=== PATIENT | female | born 1955 | race Caucasian/White ===

== ENCOUNTER 2016-11-07 14:22 | Outpatient (RCR) | payer MEDICARE, BC, OTHER ==
[~2016-11-07 14:22] MED LIST: /LOR25TA OR; /QUIN20TA; /QUIN20TA OR; /WARF25TA; /WARF5TA; ALBU17IN2; ALBUTEROL LIQ INH; ASPI325T; ASPI325T OR; BYST5TAB2 PO; CALCIUM WITH VIT D; CALCTAB22 OR; CALCTAB37 PO; CETI10TA; FERR325T OR; FLEXERIL; FOLI400T; FOLI400T OR; HYDROCHLOROQUINE PO; INSULIN SQ; LIPI20TA; LIPI20TA OR; LOTEMAX; MELA0.02 PO; METH2.5TA PO; MONT10TA2 PO; MULTIVIT PO; NEUR400C OR; NOVOINJ3 SC; OMEP20TA7 OR; PAXI40TA; PERC5TAB8; PERC7.5T8; PRIL20CA; QUIN20TA7 PO; SENO8.6T5 OR; SING10TA31; SING10TA31 OR; SUPPORT; SYMB80AE IN; SYMB80INH INH; THERGRAN; TOUJ1.2I SC; VICO5TAB; VITATAB22 PO; azmacort; b complex; humalog; restasis; vitamin d
== END 2016-11-08 ==
LOC: M CR 14:22
PROVIDERS: ATTEND Internal Medicine Cardiovascular Disease
DX: Z51.89 Encounter for other specified aftercare (principal); I25.10 Atherosclerotic heart disease of native coronary artery without angina pectoris

== ENCOUNTER → 2016-11-16 | Outpatient (CLI) | payer MEDICARE, BC, OTHER ==
[2016-11-16 14:51] LABS: ANION GAP 6 MEQ/L (8-16); BLOOD UREA NITROGEN 21 MG/DL (7-18); CALCIUM LEVEL 8.8 MG/DL (8.8-10.2); CARBON DIOXIDE LEVEL 32 MEQ/L (21-32); CHLORIDE LEVEL 103 MEQ/L (98-107); CREATININE FOR GFR 0.88 MG/DL (0.55-1.02); GLOMERULAR FILTRATION RATE > 60.0 (>45); GLUCOSE, FASTING 69 MG/DL (80-110); SODIUM LEVEL 141 MEQ/L (136-145)
== END ==
LOC: M WUC 11:52
PROVIDERS: ATTEND Surgery
DX: R91.1 Solitary pulmonary nodule (principal)

== ENCOUNTER → 2016-11-16 | Outpatient (CLI) | payer MEDICARE, BC, OTHER ==
[2016-11-16 14:54] LABS: MEAN CORPUSCULAR HGB CONC 32.1 g/dl (32.0-36.5); MEAN CORPUSCULAR VOLUME 99.6 fl (80.0-96.0); RED CELL DISTRIBUTION WIDTH 13.4 % (11.5-14.5); WHITE BLOOD COUNT 7.9 K/mm3 (4.0-10.0)
== END ==
LOC: M WUC 11:48
PROVIDERS: ATTEND Nurse Practitioner Family
DX: Z95.5 Presence of coronary angioplasty implant and graft (principal); R91.1 Solitary pulmonary nodule

== ENCOUNTER → 2016-11-24 | Outpatient (REF) | payer MEDICARE, OTHER ==
[2016-11-24 14:41] LABS: URIC ACID 3.5 MG/DL (2.6-6.0)
== END ==
LOC: M LAB REF 13:38
DX: M79.672 Pain in left foot (principal)

== ENCOUNTER 2016-12-02 13:46 | Outpatient (RCR) | payer MEDICARE, BC, OTHER | END 2016-12-06 | LOC: M CR 13:46 | PROVIDERS: ATTEND Internal Medicine Cardiovascular Disease | DX: Z95.5 Presence of coronary angioplasty implant and graft (principal) ==

== ENCOUNTER 2016-12-09 11:02 | Outpatient (RCR) | payer MEDICARE, BC, OTHER | END 2017-01-06 | LOC: M CR 11:02 | PROVIDERS: ATTEND Internal Medicine Cardiovascular Disease | DX: Z95.5 Presence of coronary angioplasty implant and graft (principal); I25.10 Atherosclerotic heart disease of native coronary artery without angina pectoris ==

== ENCOUNTER → 2016-12-12 | Outpatient (CLI) | payer MEDICARE, BC, OTHER ==
--- NOTE | 2016-12-12 11:14 | REP ---
TRIPLE PHASE BONE SCAN ANKLES AND FEET: Following the intravenous administration of 21.7 mCi of technetium 99m MDP, the patient's ankles and feet are imaged in the flow phase in the anterior and posterior projections. There is somewhat greater degree of perfusion of the right foot compared to the left. Immediate blood pool and 2.5 hour delayed images are performed of the ankles and feet in the anterior, posterior, and both lateral projections. There is somewhat greater degree of diffuse blood pooling of the right foot compared to the left. Delayed images show no abnormal focus of increased uptake in any portion of the left foot. There is a small focus of increased uptake at the posterior right calcaneus probably from spurring at that location. There is ill defined increased uptake in the tarsal/metatarsal region of the right foot, in the region of the dorsal aspect of the talonavicular joint an in the region of the tibiotalar joint most consistent with arthritic changes. IMPRESSION: No scintigraphic evidence of osteomyelitis. Probable mild arthritic changes in the right mid and hindfoot. Signed by Aung Bledsoe MD 12/12/2016 04:15 P
== END ==
LOC: M RAD 07:28
PROVIDERS: ATTEND Nurse Practitioner Family
DX: M79.675 Pain in left toe(s) (principal)
CPT/HCPCS: 78315; A9503

== ENCOUNTER → 2017-02-13 | Outpatient (CLI) | payer MEDICARE, BC, OTHER ==
[2017-02-13 14:04] LABS: MEAN CORPUSCULAR HEMOGLOBIN 33.1 pg (27.0-33.0); MEAN CORPUSCULAR VOLUME 103.4 fl (80.0-96.0); RED CELL DISTRIBUTION WIDTH 13.5 % (11.5-14.5); WHITE BLOOD COUNT 9.4 K/mm3 (4.0-10.0)
[2017-02-13 14:39] LABS: ALBUMIN 3.3 GM/DL (3.2-5.2); ALKALINE PHOSPHATASE 83 U/L (45-117); ALT/SGPT 36 U/L (12-78); ANION GAP 8 MEQ/L (8-16); AST/SGOT 21 U/L (15-37); BILIRUBIN,TOTAL 0.3 MG/DL (0.2-1.0); BLOOD UREA NITROGEN 16 MG/DL (7-18); CALCIUM LEVEL 8.7 MG/DL (8.8-10.2); CARBON DIOXIDE LEVEL 31 MEQ/L (21-32); CHLORIDE LEVEL 100 MEQ/L (98-107); CHOLESTEROL LEVEL 147 MG/DL (<200); CREATININE FOR GFR 0.76 MG/DL (0.55-1.02); GLOMERULAR FILTRATION RATE > 60.0 (>45); GLUCOSE, FASTING 188 MG/DL (80-110); POTASSIUM SERUM 4.2 MEQ/L (3.5-5.1); SODIUM LEVEL 139 MEQ/L (136-145); TOTAL PROTEIN 6.3 GM/DL (6.4-8.2); TRIGLYCERIDES LEVEL 60 MG/DL (<150)
== END ==
LOC: M WUC 10:19
PROVIDERS: ATTEND Nurse Practitioner Adult Health
DX: E78.5 Hyperlipidemia, unspecified (principal); I10 Essential (primary) hypertension; E10.59 Type 1 diabetes mellitus with other circulatory complications; E55.9 Vitamin D deficiency, unspecified

== ENCOUNTER → 2017-04-13 | Outpatient (CLI) | payer MEDICARE, BC ==
[~2017-04-13] MED LIST changes: +ASPI81TA85 PO; +ATOR80TA59 PO; -CALCTAB37 PO; +CALCTAB63 PO; +CALCTAB73 PO; +CLOP75TA2 PO; +ENAL20TA PO; +FISH100049 PO; +FOLI1TAB4 PO; +GABA-282 PO; +HYDR-3713 PO; +MAGN400C2 PO; -MELA0.02 PO; +MELA10TA PO; +MELA3TAB49 PO; +MULT1CHW39 PO; +PARO20TA3 PO; +PROAAER10 INH; +QUIN20TA17 PO; -QUIN20TA7 PO; +VITA100054 PO; +VITA400C PO; +VITACAP8 PO
--- NOTE | 2017-04-13 16:00 | REPMRS ---
Patient History The patient states she had a clinical breast exam in Patient is postmenopausal and had first child at age 34. Family history of colorectal cancer in paternal grandfather, unknown cancer in mother, and colorectal cancer in mother. Digital Woman Screen Mammo: April 13, 2017 - Exam #: [id number] Bilateral CC and MLO view(s) were taken. Technologist: Maggie Landers, Technologist Prior study comparison: February 26, 2016, digital woman screen mammo performed at [facility]. December 18, 2014, digital woman screen mammo performed at [facility]. December 06, 2013, digital woman screen mammo performed at [facility]. FINDINGS: There are scattered fibroglandular densities. There is a pacemaker power plant projecting over the left axilla on the MLO view.There has been no change in the appearance of the mammogram from the prior studies. There is a mild amount of scattered fibroglandular density which is fairly symmetric. There is no interval development of dominant mass, architectural distortion, or clustered microcalcification suggestive of malignancy. ASSESSMENT: BI-RADS/ACR category 1 mammogram. Negative. Recommendation Routine screening mammogram in 1 year (for women over age 40). This mammogram was interpreted with the aid of an FDA-approved computer-aided dectection system. Electronically Signed By: Nam Hoffman MD 04/13/17 [id number]
== END ==
LOC: M WHC 13:25
PROVIDERS: ATTEND Nurse Practitioner Family
DX: Z01.419 Encounter for gynecological examination (general) (routine) without abnormal findings (principal); Z12.31 Encounter for screening mammogram for malignant neoplasm of breast; Z78.0 Asymptomatic menopausal state; Z80.0 Family history of malignant neoplasm of digestive organs; Z95.0 Presence of cardiac pacemaker
CPT/HCPCS: G0101; G0202

== ENCOUNTER 2017-05-19 06:10 | Day surgery (SDC) | payer MEDICARE, BC, OTHER ==
[~2017-05-19] VITALS: Ht 172.7 cm; Wt 93.9 kg
[~2017-05-19 06:10] MED LIST changes: -VITA400C PO
[2017-05-19] MEDS ORDERED: LR 500 ML IV ONE (06:30)
[2017-05-19] MEDS ORDERED: VITA400C PO (06:45)
[2017-05-19] MEDS ORDERED: fentaNYL 100 MCG/2 ML INJECTION (J3010) As Ordered ONE (07:04)
[2017-05-19] MEDS ORDERED: MIDAZOLAM INJ 2 MG/2 ML VIAL (J2250) As Ordered ONE (07:04)
[2017-05-19] MEDS ORDERED: LIDOCAINE 1% SDV INJ 30 ML VIAL As Ordered ONE (07:21)
[2017-05-19] MEDS ORDERED: BACITRACIN PWD 50,000 UNITS VIAL As Ordered ONE (07:23)
[2017-05-19 09:14] VITALS: BP 178/98
--- NOTE | 2017-05-19 09:34 | RO ---
DATE OF PROCEDURE: 05/19/2017 PROCEDURE: 1. Explantation of depleted pacemaker pulse generator. 2. Testing of old atrial and ventricular pacing leads. 3. Implantation of new dual-chamber pulse generator. IMPLANTING REJECTED ITEMS CLERK: Dr. García Chao ANESTHESIOLOGIST: Dr. Olvera PREOPERATIVE DIAGNOSES: 1. Left pacemaker battery depletion. 2. Paroxysmal complete heart block. POSTOPERATIVE DIAGNOSES: 1. Left pacemaker battery depletion. 2. Paroxysmal complete heart block. TYPE OF ANESTHESIA: Monitored local anesthesia. CLINICAL SUMMARY: This 61-year-old, mother of one, disabled resident of [place], [place] is well-known to my cardiology practice with ischemic, hypertensive and valvular heart disease complicated by intermittent complete heart block with a dual-chamber pacemaker in situ. She has been followed on a regular basis in my office and was found to have pacemaker battery at the elective replacement indicator 2016. At this point, she actually has been doing very well, exercising on a regular basis at [employer] and has been free of chest discomfort, shortness of breath, palpitations, dizziness or claudication (following left lower extremity stenting December 2016). She is status post dual-chamber pacemaker implant (Medtronic SEDRO1) 04/09/2007 with CABG times three March 2014 complicated by sternal wound infection requiring debridement and deep bone biopsy. August 2016 cardiac catheterization showed normal left ventricular size and wall motion, 70% proximal LAD, 90% IM, occluded circumflex 90% proximal RCA with patent JORGENSEN to the LAD, CLAUDE to the RCA and SVG to the OM branch. The IM branch was stented. This pleasant, obese, late middle-aged woman, lay comfortably flat. Heart rate 70 beats per minute and regular, blood pressure 136/56, respiratory rate 16 per minute, body mass index (BMI) 31.5. No pallor or cyanosis. Normal oral moisture. Trachea midline. Neck veins were 3 cm above the sternal angle. Slightly increased anteroposterior chest diameter with well-healed sternotomy incision and left subclavian pacemaker incision. Apical impulse not palpable. Good air entry over both lung bauman without adventitious sounds. Heart sounds somewhat distant but audible S4 gallop. Has a soft systolic murmur along the left sternal border radiating to the right base. Normal carotid upstrokes and volume. Soft, overweight abdomen. No dependent edema. Normal pulses. Blood work 02/13/2017 showed hemoglobin of 13.5, normal white blood cell count and platelet count. Chemistry confirmed electrolyte balance with potassium 4.2, BUN 16, creatinine 0.8, albumin 3.3, random glucose 188. Glycosylated hemoglobin 8.1. EKG 05/17/2017 showed sinus rhythm at 71 beats per minute (BPM) with atrial sensing and intermittent ventricular pacing with artifact occurring simultaneously with spontaneous AV conducted impulses. Left atrial conduction disturbance. Poor precordial R wave progression with persistent S waves in V5 and V6 suggestive of body habitus versus pulmonary disease. Could not rule out prior septal injury. ST-T wave abnormalities unchanged from August 2016. DESCRIPTION OF PROCEDURE: With the patient in the fasting state having received Ancef 2 grams IV premedication and having signed informed consent, the patient was taken to the operating theater. Numerous skin electrodes were applied to facilitate continuous electrocardiographic monitoring. The left subclavian site of her old pacemaker was then prepped and draped in usual fashion. The skin was infiltrated with 1% Xylocaine and a 5 cm linear incision was made over the same scar. Careful dissection was then performed down to the level of her depleted pacemaker battery, which was then explanted (Medtronic - model #SENSA01, serial #[id number], implanted 04/09/2007). The individual pacing leads were then disconnected from the depleted pacemaker and tested. The right ventricular lead (Medtronic model #4076, serial #[id number]) measurements were: Stimulation threshold 0.7V/0.4 ms/impedance 532 ohms. The capital R wave amplitude measured 15.6 mV. The atrial lead (Medtronic model #4076, serial number #[id number]) measurements were: Stimulation threshold 2.0 volts/0.4 ms/impedance 353 ohms. The P wave amplitude measured 1.2 mV. These leads were then connected to a new dual-chamber pulse generator ([employer] - NodePing, model #[id number], serial #[id number]) and appropriate DDD pacing was documented. The generator was placed in the pocket after the pocket had been thoroughly irrigated with bacitracin solution. The device was secured in position with a suture through the upper right-hand corner of the epoxy header . The subcutaneous tissues were approximated using a running chromic suture and the skin was closed using kalpesh. A dry dressing was applied, and the patient was returned to the recovery room in good condition. No apparent complications. Estimated blood loss less than 10 mL. We will be monitoring her briefly in the advanced recovery room, but will be letting her go home once she is alert able to ambulate. Her diet will remain no added salt, low-fat, low-cholesterol, low carbohydrate. We have requested that she perform only light activities of daily living with her left arm and avoid getting her incision wet until her kalpesh are removed in my office 05/30/2017 at 9:15 a.m. Her medications will continue: Bystolic 5 mg daily, Accupril 20 mg twice a day, clopidogrel 75 mg daily, atorvastatin 80 mg daily, aspirin 81 mg daily, Dulera 100-5 one inhalation as directed, Singulair 10 mg daily, methotrexate 2.5 mg four tablets by mouth weekly on Sundays, gabapentin 300 mg tablets three daily, NovoLog FlexPen 100 units/mL sliding scale three times a day, Toujeo SoloStar 300 units/mL 40 units nightly or as directed, Paxil 20 mg daily, hydrocodone/acetaminophen 5-325 mg one tablet every 6 hours as needed, multivitamin one tablet daily, calcium 600 plus D two tablets daily, vitamin B complex one tablet daily, vitamin D3 ultra potency 50,000 units weekly, vitamin C 1 gram daily, magnesium 250 mg daily, folic acid 1 mg daily, fish oil 1 gram daily, and melatonin ER 3 mg nightly as needed. She has been encouraged contact us promptly for any abnormal erythema, swelling or discharge.
== END 2017-05-19 09:44 | disposition home or self-care (01) ==
LOC: M SDC 06:10
PROVIDERS: ATTEND Internal Medicine Cardiovascular Disease
DX: T82.111A Breakdown (mechanical) of cardiac pulse generator (battery), initial encounter (principal); I44.2 Atrioventricular block, complete; E66.8 Other obesity; I25.10 Atherosclerotic heart disease of native coronary artery without angina pectoris; I11.9 Hypertensive heart disease without heart failure; R94.31 Abnormal electrocardiogram [ECG] [EKG]; I35.1 Nonrheumatic aortic (valve) insufficiency; E78.2 Mixed hyperlipidemia; I34.0 Nonrheumatic mitral (valve) insufficiency; F17.200 Nicotine dependence, unspecified, uncomplicated; R07.9 Chest pain, unspecified; I25.2 Old myocardial infarction; E10.40 Type 1 diabetes mellitus with diabetic neuropathy, unspecified; M06.9 Rheumatoid arthritis, unspecified; M54.9 Dorsalgia, unspecified; F41.9 Anxiety disorder, unspecified; J44.9 Chronic obstructive pulmonary disease, unspecified; R06.83 Snoring; D64.9 Anemia, unspecified; R29.898 Other symptoms and signs involving the musculoskeletal system; Z91.09 Other allergy status, other than to drugs and biological substances; Z79.899 Other long term (current) drug therapy; Z79.82 Long term (current) use of aspirin; Z79.4 Long term (current) use of insulin; Z95.5 Presence of coronary angioplasty implant and graft; Z96.1 Presence of intraocular lens; Z96.643 Presence of artificial hip joint, bilateral; Y82.8 Other medical devices associated with adverse incidents
CPT/HCPCS: 33228; C1785; J0690; J2250; J3010

== ENCOUNTER → 2017-07-03 | Outpatient (CLI) | payer MEDICARE, BC, OTHER ==
[~2017-07-03] MED LIST changes: +VITA400C PO
[2017-07-03 15:10] LABS: ALBUMIN 3.2 GM/DL (3.2-5.2); ALBUMIN/GLOBULIN RATIO 1.07 (1.00-1.93); ALKALINE PHOSPHATASE 69 U/L (45-117); ALT/SGPT 38 U/L (12-78); ANION GAP 8 MEQ/L (8-16); AST/SGOT 29 U/L (15-37); BILIRUBIN,TOTAL 0.3 MG/DL (0.2-1.0); BLOOD UREA NITROGEN 15 MG/DL (7-18); CALCIUM LEVEL 8.4 MG/DL (8.8-10.2); CARBON DIOXIDE LEVEL 27 MEQ/L (21-32); CHLORIDE LEVEL 104 MEQ/L (98-107); CHOLESTEROL LEVEL 146 MG/DL (<200); CREATININE FOR GFR 0.75 MG/DL (0.55-1.02); GLOMERULAR FILTRATION RATE > 60.0 (>45); GLUCOSE, FASTING 90 MG/DL (80-110); POTASSIUM SERUM 3.9 MEQ/L (3.5-5.1); SODIUM LEVEL 139 MEQ/L (136-145); TOTAL PROTEIN 6.2 GM/DL (6.4-8.2); TRIGLYCERIDES LEVEL 45 MG/DL (<150)
== END ==
LOC: M WUC 09:45
PROVIDERS: ATTEND Nurse Practitioner Adult Health
DX: E78.2 Mixed hyperlipidemia (principal); I10 Essential (primary) hypertension; E10.59 Type 1 diabetes mellitus with other circulatory complications

== ENCOUNTER → 2017-07-18 | Outpatient (REF) | payer MEDICARE, OTHER | LOC: M SFHCPLAZ 16:34 | PROVIDERS: ATTEND Nurse Practitioner Adult Health | DX: E10.59 Type 1 diabetes mellitus with other circulatory complications (principal) ==

== ENCOUNTER → 2017-08-23 | Outpatient (REF) | payer MEDICARE, OTHER | LOC: M SFHCLERA 09:34 | PROVIDERS: ATTEND Dermatology | DX: D22.9 Melanocytic nevi, unspecified (principal) | CPT/HCPCS: 11100; 88305; G0463 ==

== ENCOUNTER → 2017-11-22 | Outpatient (CLI) | payer MEDICARE, OTHER ==
[2017-11-22 14:21] LABS: ESTIMATED AVERAGE GLUCOSE 180 MG/DL (60-110); HEMOGLOBIN A1c 7.9 %
[2017-11-22 14:27] LABS: TOTAL 25(OH) VITAMIN D 58.9 NG/ML (30.0-100.0)
[2017-11-22 14:31] LABS: ALBUMIN 3.7 GM/DL (3.2-5.2); ALBUMIN/GLOBULIN RATIO 1.32 (1.00-1.93); ALKALINE PHOSPHATASE 73 U/L (45-117); ALT/SGPT 32 U/L (12-78); ANION GAP 6 MEQ/L (8-16); AST/SGOT 25 U/L (7-37); BILIRUBIN,TOTAL 0.4 MG/DL (0.2-1.0); BLOOD UREA NITROGEN 17 MG/DL (7-18); CALCIUM LEVEL 9.1 MG/DL (8.8-10.2); CARBON DIOXIDE LEVEL 30 MEQ/L (21-32); CHLORIDE LEVEL 104 MEQ/L (98-107); CHOLESTEROL LEVEL 155 MG/DL (<200); CREATININE FOR GFR 0.83 MG/DL (0.55-1.30); GLOMERULAR FILTRATION RATE > 60.0 (>45); GLUCOSE, FASTING 91 MG/DL (70-100); HDL CHOLESTEROL 100 MG/DL (>40); LDL CHOLESTEROL 43.8 MG/DL (<100); NON-HDL-C 55 MG/DL; POTASSIUM SERUM 4.5 MEQ/L (3.5-5.1); SODIUM LEVEL 140 MEQ/L (136-145); TOTAL PROTEIN 6.5 GM/DL (6.4-8.2); TRIGLYCERIDES LEVEL 56 MG/DL (<150)
== END ==
LOC: M WUC 08:50
DX: E10.59 Type 1 diabetes mellitus with other circulatory complications (principal); E55.9 Vitamin D deficiency, unspecified; E78.2 Mixed hyperlipidemia

== ENCOUNTER → 2017-11-22 | Outpatient (CLI) | payer MEDICARE, OTHER ==
[2017-11-22 13:58] LABS: BASO % 0.4 % (0.0-1.0); EOS # 0.1 10^3/uL (0.0-0.50); EOS % 1.2 % (0.0-3.0); HEMATOCRIT 41.7 % (36.0-47.0); HEMOGLOBIN 13.8 g/dl (12.0-16.0); IMMATURE GRANULOCYTE % 0.1 % (0-3.0); LYMPH # 1.3 10^3/uL (1.5-4.5); LYMPH % 16.2 % (24.0-44.0); MEAN CORPUSCULAR HGB CONC 33.1 g/dl (32.0-36.5); MEAN CORPUSCULAR VOLUME 99.8 fl (80.0-96.0); MONO # 0.7 10^3/uL (0.0-0.8); NEUTROPHILS # 5.7 10^3/uL (1.8-7.7); NEUTROPHILS % 73.1 % (36.0-66.0); PLATELET COUNT, AUTOMATED 269 10^3/uL (150-450); RED BLOOD COUNT 4.18 10^6/uL (4.00-5.40); RED CELL DISTRIBUTION WIDTH 13.9 % (11.5-14.5); WHITE BLOOD COUNT 7.8 10^3/uL (4.0-10.0)
[2017-11-22 14:14] LABS: ALBUMIN 3.6 GM/DL (3.2-5.2); ALT/SGPT 31 U/L (12-78); AST/SGOT 25 U/L (7-37); BLOOD UREA NITROGEN 17 MG/DL (7-18); C REACTIVE PROTEIN QUANTITATIV < 0.30 MG/DL (0.00-0.30); CREATININE FOR GFR 0.84 MG/DL (0.55-1.30); GLOMERULAR FILTRATION RATE > 60.0 (>45)
[2017-11-22 14:32] LABS: ERYTHROCYTE SEDIMENTATION RATE 18 mm/hr (0-30)
[2017-11-22 14:58] LABS: HEPATITIS C VIRUS ABY INDEX < 0.0 INDEX (<0.8)
[2017-11-24 08:26] LABS: HEPATITIS BE ANTIGEN Negative (Negative)
== END ==
LOC: M WUC 08:54
DX: Z51.81 Encounter for therapeutic drug level monitoring (principal); Z79.899 Other long term (current) drug therapy; E10.59 Type 1 diabetes mellitus with other circulatory complications; E55.9 Vitamin D deficiency, unspecified; E78.2 Mixed hyperlipidemia
CPT/HCPCS: 80053

== ENCOUNTER → 2018-04-18 | Outpatient (CLI) | payer MEDICARE, BC | LOC: M WHC 10:04 | DX: Z12.31 Encounter for screening mammogram for malignant neoplasm of breast (principal); Z78.0 Asymptomatic menopausal state | CPT/HCPCS: 77067 ==

== ENCOUNTER → 2018-05-10 | Outpatient (CLI) | payer MEDICARE, BC, OTHER ==
[2018-05-10 14:54] LABS: BASO % 0.3 % (0.0-1.0); EOS # 0.1 10^3/uL (0.0-0.50); HEMATOCRIT 39.7 % (36.0-47.0); IMMATURE GRANULOCYTE % 0.3 % (0-3.0); LYMPH # 1.8 10^3/uL (1.5-4.5); MEAN CORPUSCULAR HEMOGLOBIN 32.7 pg (27.0-33.0); MEAN CORPUSCULAR HGB CONC 32.7 g/dl (32.0-36.5); MEAN CORPUSCULAR VOLUME 99.7 fl (80.0-96.0); MONO # 0.6 10^3/uL (0.0-0.8); MONO % 8.7 % (0.0-5.0); NEUTROPHILS # 4.6 10^3/uL (1.8-7.7); NEUTROPHILS % 64.7 % (36.0-66.0); PLATELET COUNT, AUTOMATED 276 10^3/uL (150-450); RED BLOOD COUNT 3.98 10^6/uL (4.00-5.40); RED CELL DISTRIBUTION WIDTH 15.5 % (11.5-14.5); WHITE BLOOD COUNT 7.2 10^3/uL (4.0-10.0)
[2018-05-10 14:58] LABS: ANION GAP 7 MEQ/L (8-16); BLOOD UREA NITROGEN 19 MG/DL (7-18); CALCIUM LEVEL 8.6 MG/DL (8.8-10.2); CARBON DIOXIDE LEVEL 31 MEQ/L (21-32); CHLORIDE LEVEL 102 MEQ/L (98-107); GLOMERULAR FILTRATION RATE > 60.0 (>45); GLUCOSE, FASTING 260 MG/DL (70-100); POTASSIUM SERUM 4.9 MEQ/L (3.5-5.1); SODIUM LEVEL 140 MEQ/L (136-145)
[2018-05-10 15:07] LABS: PARTIAL THROMBOPLASTIN TIME 25.9 SECONDS (25.4-37.6)
[2018-05-10 15:14] LABS: INR 0.98; PROTHROMBIN TIME 13.1 SECONDS (12.1-14.4)
== END ==
LOC: M WUC 11:33
DX: Z01.818 Encounter for other preprocedural examination (principal); I70.212 Atherosclerosis of native arteries of extremities with intermittent claudication, left leg; D69.8 Other specified hemorrhagic conditions
CPT/HCPCS: 80048

== ENCOUNTER → 2018-05-13 | Outpatient (CLI) | payer MEDICARE, BC, OTHER | LOC: M WUC 14:13 | DX: M25.569 Pain in unspecified knee (principal) | CPT/HCPCS: 73564 ==

== ENCOUNTER → 2018-07-02 | Outpatient (CLI) | payer MEDICARE, BC, OTHER ==
[2018-07-02 18:58] LABS: MALB URINE SIEMENS 42.1 MG/L
[2018-07-02 19:03] LABS: MAU/CREAT RATIO 26.8 MCG/MG (0.0-30.0)
[2018-07-02 19:10] LABS: ALBUMIN 3.4 GM/DL (3.2-5.2); ALBUMIN/GLOBULIN RATIO 1.17 (1.00-1.93); ALKALINE PHOSPHATASE 65 U/L (45-117); ALT/SGPT 39 U/L (12-78); ANION GAP 7 MEQ/L (8-16); AST/SGOT 25 U/L (7-37); BILIRUBIN,TOTAL 0.5 MG/DL (0.2-1.0); BLOOD UREA NITROGEN 14 MG/DL (7-18); CALCIUM LEVEL 8.5 MG/DL (8.8-10.2); CARBON DIOXIDE LEVEL 31 MEQ/L (21-32); CHLORIDE LEVEL 104 MEQ/L (98-107); CHOLESTEROL LEVEL 158 MG/DL (<200); CHOLESTEROL RISK RATIO 1.504 (<5); CREATININE FOR GFR 0.66 MG/DL (0.55-1.30); GLOMERULAR FILTRATION RATE > 60.0 (>45); GLUCOSE, FASTING 102 MG/DL (70-100); HDL CHOLESTEROL 105 MG/DL (>40); LDL CHOLESTEROL 44 MG/DL (<100); NON-HDL-C 53 MG/DL; POTASSIUM SERUM 4.9 MEQ/L (3.5-5.1); SODIUM LEVEL 142 MEQ/L (136-145); TOTAL PROTEIN 6.3 GM/DL (6.4-8.2); TRIGLYCERIDES LEVEL 44 MG/DL (<150)
[2018-07-02 20:08] LABS: TOTAL 25(OH) VITAMIN D 45.5 NG/ML (30.0-100.0)
[2018-07-02 20:27] LABS: ESTIMATED AVERAGE GLUCOSE 174 MG/DL (60-110); HEMOGLOBIN A1c 7.7 %
== END ==
LOC: M WUC 10:32
DX: E78.2 Mixed hyperlipidemia (principal); E10.59 Type 1 diabetes mellitus with other circulatory complications; E55.9 Vitamin D deficiency, unspecified
CPT/HCPCS: 84443

== ENCOUNTER → 2018-10-17 | Outpatient (CLI) | payer MEDICARE, BC, OTHER ==
[~2018-10-17] MED LIST changes: +FOLI1TAB11 PO; -FOLI1TAB4 PO; -GABA-282 PO; +GABA-843 PO; +METH2.5T48 PO; -METH2.5TA PO; +QUIN1TAB3 PO; -QUIN20TA17 PO
[2018-10-17 13:23] LABS: BASO % 0.2 % (0.0-1.0); EOS % 0.2 % (0.0-3.0); HEMATOCRIT 38.1 % (36.0-47.0); HEMOGLOBIN 12.6 g/dl (12.0-15.5); LYMPH # 1.4 10^3/uL (1.5-4.5); LYMPH % 11.5 % (24.0-44.0); MEAN CORPUSCULAR HEMOGLOBIN 32.9 pg (27.0-33.0); MEAN CORPUSCULAR HGB CONC 33.1 g/dl (32.0-36.5); MEAN CORPUSCULAR VOLUME 99.5 fl (80.0-96.0); MONO # 1.5 10^3/uL (0.0-0.8); MONO % 12.2 % (0.0-5.0); NEUTROPHILS # 9.2 10^3/uL (1.8-7.7); NEUTROPHILS % 75.5 % (36.0-66.0); PLATELET COUNT, AUTOMATED 273 10^3/uL (150-450); RED BLOOD COUNT 3.83 10^6/uL (4.00-5.40); WHITE BLOOD COUNT 12.2 10^3/uL (4.0-10.0)
[2018-10-17 13:46] LABS: ALT/SGPT 33 U/L (12-78); GLOMERULAR FILTRATION RATE > 60.0 (>45)
[2018-10-17 13:54] LABS: ERYTHROCYTE SEDIMENTATION RATE 59 mm/hr (0-30)
== END ==
LOC: M WUC 09:43
PROVIDERS: ATTEND Internal Medicine Rheumatology
DX: M05.79 Rheumatoid arthritis with rheumatoid factor of multiple sites without organ or systems involvement (principal); Z79.899 Other long term (current) drug therapy

== ENCOUNTER → 2018-10-17 | Outpatient (CLI) | payer MEDICARE, BC, OTHER ==
[2018-10-17 13:49] LABS: ALBUMIN 3.3 GM/DL (3.2-5.2); ALT/SGPT 32 U/L (12-78); BILIRUBIN,TOTAL 0.6 MG/DL (0.2-1.0); BLOOD UREA NITROGEN 16 MG/DL (7-18); CALCIUM LEVEL 8.9 MG/DL (8.8-10.2); CARBON DIOXIDE LEVEL 28 MEQ/L (21-32); CHLORIDE LEVEL 100 MEQ/L (98-107); CHOLESTEROL LEVEL 156 MG/DL (<200); CHOLESTEROL RISK RATIO 1.457 (<5); CREATININE FOR GFR 0.68 MG/DL (0.55-1.30); GLOMERULAR FILTRATION RATE > 60.0 (>45); GLUCOSE, FASTING 82 MG/DL (70-100); HDL CHOLESTEROL 107 MG/DL (>40); LDL CHOLESTEROL 36 MG/DL (<100); NON-HDL-C 49 MG/DL; POTASSIUM SERUM 4.9 MEQ/L (3.5-5.1); SODIUM LEVEL 135 MEQ/L (136-145); TOTAL PROTEIN 6.1 GM/DL (6.4-8.2); TRIGLYCERIDES LEVEL 66 MG/DL (<150)
[2018-10-17 14:13] LABS: TOTAL 25(OH) VITAMIN D 51.9 NG/ML (30.0-100.0)
[2018-10-17 14:25] LABS: HEMOGLOBIN A1c 9.2 %
== END ==
LOC: M WUC 09:39
PROVIDERS: ATTEND Nurse Practitioner Adult Health
DX: E10.59 Type 1 diabetes mellitus with other circulatory complications (principal); E55.9 Vitamin D deficiency, unspecified; E78.2 Mixed hyperlipidemia; M05.79 Rheumatoid arthritis with rheumatoid factor of multiple sites without organ or systems involvement; Z79.899 Other long term (current) drug therapy

== ENCOUNTER → 2018-10-22 | Outpatient (CLI) | payer MEDICARE, BC, OTHER ==
--- NOTE | 2018-10-22 16:50 | REP ---
Chest two views HISTORY: Flu symptoms Comparison: 08/11/2015 The lungs are clear. The heart is normal in size. The pulmonary vasculature is normal in appearance. The bony structure is intact. A cardiac pacemaker is present. IMPRESSION: No acute disease. Electronically Signed by Martin Milligan MD 10/22/2018 04:42 P
== END ==
LOC: M WUC 15:46
PROVIDERS: ATTEND Nurse Practitioner Adult Health
DX: R68.89 Other general symptoms and signs (principal); Z95.0 Presence of cardiac pacemaker
CPT/HCPCS: 71046; 87804; G0463

== ENCOUNTER → 2019-02-01 | Outpatient (CLI) | payer MEDICARE, BC, OTHER ==
[~2019-02-01] MED LIST changes: -/QUIN20TA; -/QUIN20TA OR; -/WARF25TA; -/WARF5TA; +ACCU1TAB2; +ACCU1TAB2 OR; +COUM1TAB17; +COUM1TAB18; -MULT1CHW39 PO; +MULT200T7 PO
[2019-02-01 13:41] LABS: BASO % 0.3 % (0.0-1.0); EOS # 0.1 10^3/uL (0.0-0.50); EOS % 1.2 % (0.0-3.0); HEMATOCRIT 37.9 % (36.0-47.0); HEMOGLOBIN 12.4 g/dl (12.0-15.5); LYMPH # 1.3 10^3/uL (1.5-4.5); LYMPH % 19.4 % (24.0-44.0); MEAN CORPUSCULAR HGB CONC 32.7 g/dl (32.0-36.5); MEAN CORPUSCULAR VOLUME 100.8 fl (80.0-96.0); MONO # 0.6 10^3/uL (0.0-0.8); MONO % 9.2 % (0.0-5.0); NEUTROPHILS # 4.8 10^3/uL (1.8-7.7); NEUTROPHILS % 69.6 % (36.0-66.0); PLATELET COUNT, AUTOMATED 294 10^3/uL (150-450); RED BLOOD COUNT 3.76 10^6/uL (4.00-5.40); WHITE BLOOD COUNT 6.9 10^3/uL (4.0-10.0)
[2019-02-01 13:49] LABS: ALBUMIN 3.5 GM/DL (3.2-5.2); ALT/SGPT 29 U/L (12-78); C REACTIVE PROTEIN QUANTITATIV < 0.30 MG/DL (0.00-0.30); CREATININE FOR GFR 0.73 MG/DL (0.55-1.30); GLOMERULAR FILTRATION RATE > 60.0 (>45)
[2019-02-01 14:28] LABS: ERYTHROCYTE SEDIMENTATION RATE 28 mm/hr (0-30)
== END ==
LOC: M WUC 09:30
PROVIDERS: ATTEND Internal Medicine Rheumatology
DX: Z53.9 Procedure and treatment not carried out, unspecified reason (principal); M05.79 Rheumatoid arthritis with rheumatoid factor of multiple sites without organ or systems involvement; Z79.899 Other long term (current) drug therapy

== ENCOUNTER → 2019-02-01 | Outpatient (CLI) | payer MEDICARE, BC, OTHER ==
[2019-02-01 13:52] LABS: ALBUMIN 3.3 GM/DL (3.2-5.2); ALT/SGPT 30 U/L (12-78); BILIRUBIN,TOTAL 0.4 MG/DL (0.2-1.0); BLOOD UREA NITROGEN 17 MG/DL (7-18); CALCIUM LEVEL 8.8 MG/DL (8.8-10.2); CARBON DIOXIDE LEVEL 31 MEQ/L (21-32); CHLORIDE LEVEL 105 MEQ/L (98-107); CHOLESTEROL LEVEL 152 MG/DL (<200); CHOLESTEROL RISK RATIO 1.688 (<5); CREATININE FOR GFR 0.72 MG/DL (0.55-1.30); GLOMERULAR FILTRATION RATE > 60.0 (>45); GLUCOSE, FASTING 80 MG/DL (70-100); HDL CHOLESTEROL 90 MG/DL (>40); LDL CHOLESTEROL 49.4 MG/DL (<100); NON-HDL-C 62 MG/DL; POTASSIUM SERUM 4.6 MEQ/L (3.5-5.1); SODIUM LEVEL 141 MEQ/L (136-145); TOTAL PROTEIN 6.3 GM/DL (6.4-8.2); TRIGLYCERIDES LEVEL 63 MG/DL (<150)
[2019-02-01 13:59] LABS: HEMOGLOBIN A1c 8.6 %; TOTAL 25(OH) VITAMIN D 60.7 NG/ML (30.0-100.0)
[2019-02-01 14:26] LABS: MALB URINE SIEMENS 74.9 MG/L
== END ==
LOC: M WUC 09:33
PROVIDERS: ATTEND Nurse Practitioner Adult Health
DX: E10.59 Type 1 diabetes mellitus with other circulatory complications (principal); E78.2 Mixed hyperlipidemia; E55.9 Vitamin D deficiency, unspecified; M05.79 Rheumatoid arthritis with rheumatoid factor of multiple sites without organ or systems involvement; Z79.899 Other long term (current) drug therapy

== ENCOUNTER → 2019-02-04 | Outpatient (CLI) | payer MEDICARE, BC, OTHER ==
[2019-02-04 16:55] LABS: BASO % 0.3 % (0.0-1.0); EOS # 0.1 10^3/uL (0.0-0.50); EOS % 0.6 % (0.0-3.0); HEMATOCRIT 38.2 % (36.0-47.0); HEMOGLOBIN 12.5 g/dl (12.0-15.5); LYMPH # 1.7 10^3/uL (1.5-4.5); MEAN CORPUSCULAR HEMOGLOBIN 32.6 pg (27.0-33.0); MEAN CORPUSCULAR HGB CONC 32.7 g/dl (32.0-36.5); MEAN CORPUSCULAR VOLUME 99.5 fl (80.0-96.0); MONO # 0.8 10^3/uL (0.0-0.8); MONO % 9.1 % (0.0-5.0); NEUTROPHILS % 69.7 % (36.0-66.0); PLATELET COUNT, AUTOMATED 247 10^3/uL (150-450); RED BLOOD COUNT 3.84 10^6/uL (4.00-5.40); WHITE BLOOD COUNT 8.6 10^3/uL (4.0-10.0)
[2019-02-04 17:14] LABS: INR 1.01; PROTHROMBIN TIME 13.4 SECONDS (12.1-14.4)
[2019-02-04 17:15] LABS: PARTIAL THROMBOPLASTIN TIME 29.2 SECONDS (25.4-37.6)
== END ==
LOC: M WUC 14:03
PROVIDERS: ATTEND Orthopaedic Surgery
DX: Z01.818 Encounter for other preprocedural examination (principal)

== ENCOUNTER → 2019-03-25 | Outpatient (CLI) | payer MEDICARE, BC, OTHER | LOC: M WUC 17:18 | PROVIDERS: ATTEND Nurse Practitioner Adult Health | DX: Z87.891 Personal history of nicotine dependence (principal) | CPT/HCPCS: 36415; G0480 ==

== ENCOUNTER → 2019-05-27 | Outpatient (REF) | payer MEDICARE, OTHER | LOC: M SFHCPLAZ 19:52 | PROVIDERS: ATTEND Dermatology | DX: D22.9 Melanocytic nevi, unspecified (principal) ==

== ENCOUNTER → 2019-05-30 | Outpatient (CLI) | payer MEDICARE, OTHER ==
[2019-05-30 13:51] LABS: ALBUMIN 3.5 GM/DL (3.2-5.2); ALT/SGPT 46 U/L (12-78); BILIRUBIN,TOTAL 0.4 MG/DL (0.2-1.0); BLOOD UREA NITROGEN 19 MG/DL (7-18); CALCIUM LEVEL 8.9 MG/DL (8.8-10.2); CARBON DIOXIDE LEVEL 29 MEQ/L (21-32); CHLORIDE LEVEL 105 MEQ/L (98-107); CHOLESTEROL LEVEL 150 MG/DL (<200); CHOLESTEROL RISK RATIO 1.612 (<5); CREATININE FOR GFR 0.72 MG/DL (0.55-1.30); GLOMERULAR FILTRATION RATE > 60.0 (>45); GLUCOSE, FASTING 76 MG/DL (70-100); HDL CHOLESTEROL 93 MG/DL (>40); LDL CHOLESTEROL 46 MG/DL (<100); NON-HDL-C 57 MG/DL; POTASSIUM SERUM 4.6 MEQ/L (3.5-5.1); SODIUM LEVEL 139 MEQ/L (136-145); TOTAL 25(OH) VITAMIN D 72.6 NG/ML (30.0-100.0); TOTAL PROTEIN 6.1 GM/DL (6.4-8.2); TRIGLYCERIDES LEVEL 57 MG/DL (<150)
[2019-05-30 14:02] LABS: HEMOGLOBIN A1c 9.5 %
[2019-05-30 14:09] LABS: MALB URINE SIEMENS 23.3 MG/L; MAU/CREAT RATIO 21.3 MCG/MG (0.0-30.0)
== END ==
LOC: M WUC 10:01
PROVIDERS: ATTEND Nurse Practitioner Adult Health
DX: E10.59 Type 1 diabetes mellitus with other circulatory complications (principal); E78.2 Mixed hyperlipidemia; E55.9 Vitamin D deficiency, unspecified

== ENCOUNTER → 2019-07-16 | Outpatient (CLI) | payer MEDICARE, BC ==
--- NOTE | 2019-07-16 15:11 | REPMRS ---
Patient History The patient states she had a clinical breast exam in 07/2019. Patient is postmenopausal and had first child at age 34. Family history of colorectal cancer in mother, colorectal cancer in paternal grandfather. No Hormone Replacement Therapy 3D TOMOSYNTHESIS WAS PERFORMED. The [facility] lifetime risk for breast cancer is 9.3%. Digital Woman Screen Mammo: July 16, 2019 - Exam #: [id number] Bilateral CC and MLO view(s) were taken. Technologist: Reba Maguire, Technologist Prior study comparison: April 18, 2018, bilateral digital woman screen mammo performed at [facility]. April 13, 2017, digital woman screen mammo performed at [facility]. FINDINGS: There are scattered fibroglandular densities. There has been no change in the appearance of the mammogram from the prior studies. There is a mild amount of residual fibroglandular tissue which is fairly symmetric. There is no interval development of dominant mass, architectural distortion, or clustered microcalcification suggestive of malignancy. Assessment: BI-RADS/ACR category 1 mammogram. Negative Mammogram. Recommendation Routine screening mammogram in 1 year (for women over age 40). This mammogram was interpreted with the aid of an FDA-approved computer-aided dectection system. Electronically Signed By: Aung Bledsoe MD 07/16/19 [id number]
== END ==
LOC: M WHC 13:23
PROVIDERS: ATTEND Nurse Practitioner Family
DX: Z01.419 Encounter for gynecological examination (general) (routine) without abnormal findings (principal); Z12.31 Encounter for screening mammogram for malignant neoplasm of breast; Z78.0 Asymptomatic menopausal state; Z80.0 Family history of malignant neoplasm of digestive organs
CPT/HCPCS: 77063; 77067; G0101; G0123

== ENCOUNTER → 2019-07-16 | Outpatient (REF) | payer MEDICARE, OTHER | LOC: M SFHCWAGY 13:49 | PROVIDERS: ATTEND Nurse Practitioner Family | DX: Z12.4 Encounter for screening for malignant neoplasm of cervix (principal); N95.8 Other specified menopausal and perimenopausal disorders ==

== ENCOUNTER → 2019-08-22 | Outpatient (REF) | payer MEDICARE, OTHER ==
[2019-08-22 18:11] LABS: ALBUMIN 3.3 GM/DL (3.2-5.2); ALT/SGPT 33 U/L (12-78); BILIRUBIN,TOTAL 0.3 MG/DL (0.2-1.0); BLOOD UREA NITROGEN 16 MG/DL (7-18); CALCIUM LEVEL 8.6 MG/DL (8.8-10.2); CARBON DIOXIDE LEVEL 27 MEQ/L (21-32); CHLORIDE LEVEL 99 MEQ/L (98-107); GLOMERULAR FILTRATION RATE > 60.0 (>45); GLUCOSE, FASTING 366 MG/DL (70-100); POTASSIUM SERUM 4.9 MEQ/L (3.5-5.1); SODIUM LEVEL 132 MEQ/L (136-145); TOTAL PROTEIN 6.1 GM/DL (6.4-8.2)
[2019-08-22 18:30] LABS: HEMOGLOBIN A1c 8.5 %
== END ==
LOC: M SFHCPLAZ 13:46
PROVIDERS: ATTEND Nurse Practitioner Adult Health
DX: E10.59 Type 1 diabetes mellitus with other circulatory complications (principal)
CPT/HCPCS: 36415; 80053; 83036; 84443; G0463

== ENCOUNTER → 2019-10-25 | Outpatient (CLI) | payer MEDICARE, OTHER ==
[2019-10-25 17:11] LABS: BASO % 0.3 % (0.0-1.0); EOS # 0.1 10^3/uL (0.0-0.5); EOS % 1.2 % (0.0-3.0); HEMATOCRIT 42.3 % (36.0-47.0); HEMOGLOBIN 13.4 g/dl (12.0-15.5); LYMPH # 1.6 10^3/uL (1.5-5.0); MEAN CORPUSCULAR HEMOGLOBIN 31.6 pg (27.0-33.0); MEAN CORPUSCULAR HGB CONC 31.7 g/dl (32.0-36.5); MEAN CORPUSCULAR VOLUME 99.8 fl (80.0-96.0); MONO # 0.9 10^3/uL (0.0-0.8); MONO % 13.6 % (0.0-5.0); NEUTROPHILS # 3.9 10^3/uL (1.5-8.5); NEUTROPHILS % 59.6 % (36.0-66.0); PLATELET COUNT, AUTOMATED 258 10^3/uL (150-450); RED BLOOD COUNT 4.24 10^6/uL (4.00-5.40); WHITE BLOOD COUNT 6.6 10^3/uL (4.0-10.0)
[2019-10-25 17:27] LABS: ALBUMIN 3.6 GM/DL (3.2-5.2); ALT/SGPT 29 U/L (12-78); C REACTIVE PROTEIN QUANTITATIV 1.19 MG/DL (0.00-0.30); CREATININE FOR GFR 0.94 MG/DL (0.55-1.30); GLOMERULAR FILTRATION RATE > 60.0 (>45)
[2019-10-25 17:29] LABS: ERYTHROCYTE SEDIMENTATION RATE 13 mm/hr (0-30)
== END ==
LOC: M WUC 15:03
PROVIDERS: ATTEND Internal Medicine Rheumatology
DX: Z79.899 Other long term (current) drug therapy (principal)

== ENCOUNTER → 2019-12-18 | Outpatient (CLI) | payer MEDICARE, OTHER ==
[~2019-12-18] MED LIST changes: -MONT10TA2 PO; +MONT10TA4 PO
[2019-12-18 13:26] LABS: BLOOD UREA NITROGEN 17 MG/DL (7-18); CREATININE FOR GFR 0.75 MG/DL (0.55-1.30); GLUCOSE, FASTING 153 MG/DL (70-100)
[2019-12-18 13:27] LABS: CALCIUM LEVEL 9.4 MG/DL (8.8-10.2); CARBON DIOXIDE LEVEL 29 MEQ/L (21-32); CHLORIDE LEVEL 102 MEQ/L (98-107); GLOMERULAR FILTRATION RATE > 60.0 (>45); POTASSIUM SERUM 4.6 MEQ/L (3.5-5.1); SODIUM LEVEL 137 MEQ/L (136-145)
[2019-12-18 13:49] LABS: BASO % 0.2 % (0.0-1.0); EOS # 0.1 10^3/uL (0.0-0.5); EOS % 0.9 % (0.0-3.0); HEMATOCRIT 41.7 % (36.0-47.0); HEMOGLOBIN 13.3 g/dl (12.0-15.5); LYMPH # 1.6 10^3/uL (1.5-5.0); LYMPH % 18.4 % (24.0-44.0); MEAN CORPUSCULAR HGB CONC 31.9 g/dl (32.0-36.5); MEAN CORPUSCULAR VOLUME 100.5 fl (80.0-96.0); MONO # 0.9 10^3/uL (0.0-0.8); MONO % 10.7 % (0.0-5.0); NEUTROPHILS # 5.9 10^3/uL (1.5-8.5); NEUTROPHILS % 69.4 % (36.0-66.0); PLATELET COUNT, AUTOMATED 268 10^3/uL (150-450); RED BLOOD COUNT 4.15 10^6/uL (4.00-5.40); WHITE BLOOD COUNT 8.5 10^3/uL (4.0-10.0)
== END ==
LOC: M WUC 09:27
PROVIDERS: ATTEND Internal Medicine Cardiovascular Disease
DX: I25.10 Atherosclerotic heart disease of native coronary artery without angina pectoris (principal); R94.31 Abnormal electrocardiogram [ECG] [EKG]; Z95.1 Presence of aortocoronary bypass graft

== ENCOUNTER → 2020-02-14 | Outpatient (CLI) | payer MEDICARE, OTHER ==
[2020-02-14 17:06] LABS: ALBUMIN 3.5 GM/DL (3.2-5.2); ALT/SGPT 35 U/L (12-78); C REACTIVE PROTEIN QUANTITATIV < 0.30 MG/DL (0.00-0.30); CREATININE FOR GFR 0.71 MG/DL (0.55-1.30); GLOMERULAR FILTRATION RATE > 60.0 (>45)
[2020-02-14 17:15] LABS: BASO % 0.3 % (0.0-1.0); EOS % 0.6 % (0.0-3.0); HEMATOCRIT 37.8 % (36.0-47.0); HEMOGLOBIN 12.2 g/dl (12.0-15.5); LYMPH # 1.7 10^3/uL (1.5-5.0); LYMPH % 27.7 % (24.0-44.0); MEAN CORPUSCULAR HEMOGLOBIN 32.4 pg (27.0-33.0); MEAN CORPUSCULAR HGB CONC 32.3 g/dl (32.0-36.5); MEAN CORPUSCULAR VOLUME 100.5 fl (80.0-96.0); MONO # 0.6 10^3/uL (0.0-0.8); MONO % 10.1 % (0.0-5.0); NEUTROPHILS # 3.8 10^3/uL (1.5-8.5); PLATELET COUNT, AUTOMATED 245 10^3/uL (150-450); RED BLOOD COUNT 3.76 10^6/uL (4.00-5.40); WHITE BLOOD COUNT 6.2 10^3/uL (4.0-10.0)
[2020-02-14 18:03] LABS: ERYTHROCYTE SEDIMENTATION RATE 15 mm/hr (0-30)
== END ==
LOC: M WUC 13:39
PROVIDERS: ATTEND Internal Medicine Rheumatology
DX: M05.79 Rheumatoid arthritis with rheumatoid factor of multiple sites without organ or systems involvement (principal); Z79.899 Other long term (current) drug therapy

== ENCOUNTER → 2020-03-25 | Outpatient (REF) | payer MEDICARE, OTHER ==
[2020-03-25 16:13] LABS: CREATININE, URINE 15.8 MG/DL; MALB URINE SIEMENS 23.1 MG/L; MAU/CREAT RATIO 146.2 MCG/MG (0.0-30.0)
== END ==
LOC: M LAB REF 15:01
PROVIDERS: ATTEND Nurse Practitioner Family
DX: E10.65 Type 1 diabetes mellitus with hyperglycemia (principal)

== ENCOUNTER → 2020-05-13 | Outpatient (CLI) | payer MEDICARE, BC, OTHER ==
[~2020-05-13] MED LIST changes: -ASPI81TA85 PO; +ASPI81TA86 PO; -ENAL20TA PO; +ENAL20TA11 PO
== END ==
LOC: M LABSMTC 12:30
PROVIDERS: ATTEND Nurse Practitioner Family
DX: Z11.59 Encounter for screening for other viral diseases (principal); Z20.828 Contact with and (suspected) exposure to other viral communicable diseases
CPT/HCPCS: C9803; U0003

== ENCOUNTER → 2020-06-24 | Outpatient (CLI) | payer MEDICARE, BC, OTHER ==
[2020-06-24 11:46] LABS: BLOOD UREA NITROGEN 20 MG/DL (7-18); CALCIUM LEVEL 9.3 MG/DL (8.8-10.2); CARBON DIOXIDE LEVEL 29 MEQ/L (21-32); CHLORIDE LEVEL 102 MEQ/L (98-107); CHOLESTEROL LEVEL 191 MG/DL (<200); CHOLESTEROL RISK RATIO 1.785 (<5); CREATININE FOR GFR 0.79 MG/DL (0.55-1.30); GLOMERULAR FILTRATION RATE > 60.0 (>45); GLUCOSE, FASTING 151 MG/DL (70-100); HDL CHOLESTEROL 107 MG/DL (>40); LDL CHOLESTEROL 73 MG/DL (<100); NON-HDL-C 84 MG/DL; POTASSIUM SERUM 4.8 MEQ/L (3.5-5.1); SODIUM LEVEL 138 MEQ/L (136-145); TRIGLYCERIDES LEVEL 54 MG/DL (<150)
== END ==
LOC: M WUC 08:41
PROVIDERS: ATTEND Physician Assistant
DX: I25.10 Atherosclerotic heart disease of native coronary artery without angina pectoris (principal); I11.9 Hypertensive heart disease without heart failure

== ENCOUNTER → 2020-07-17 | Outpatient (CLI) | payer MEDICARE, OTHER ==
--- NOTE | 2020-07-17 14:50 | REPMRS ---
Patient History The patient states she had a clinical breast exam in 07/2020. Patient is postmenopausal, had previous chest radiation therapy at age 64, has history of right sided lung cancer at age 64, and had first child at age 34. Family history of colorectal cancer in mother, colorectal cancer in paternal grandfather. No Hormone Replacement Therapy 3D TOMOSYNTHESIS WAS PERFORMED. The [facility] lifetime risk for breast cancer is 8.9%. VOLPARA ZONIA C. Digital Woman Screen Mammo: July 17, 2020 - Exam #: [id number] Bilateral CC and MLO view(s) were taken. Technologist: Reba Maguire, Technologist Prior study comparison: July 16, 2019, bilateral digital woman screen mammo performed at [facility]. April 18, 2018, bilateral digital woman screen mammo performed at [facility]. FINDINGS: There are scattered fibroglandular densities. There has been no change in the appearance of the mammogram from the prior studies. There is a mild amount of residual fibroglandular tissue which is fairly symmetric. There is no interval development of dominant mass, architectural distortion, or clustered microcalcification suggestive of malignancy. Assessment: BI-RADS/ACR category 1 mammogram. Negative Mammogram. Recommendation Routine screening mammogram in 1 year (for women over age 40). This mammogram was interpreted with the aid of an FDA-approved computer-aided dectection system. Electronically Signed By: Aung Bledsoe MD 07/17/20 [id number]
== END ==
LOC: M WHC 13:25
PROVIDERS: ATTEND Nurse Practitioner Family
DX: Z01.419 Encounter for gynecological examination (general) (routine) without abnormal findings (principal); Z12.31 Encounter for screening mammogram for malignant neoplasm of breast; Z78.0 Asymptomatic menopausal state; Z85.118 Personal history of other malignant neoplasm of bronchus and lung; Z80.0 Family history of malignant neoplasm of digestive organs; Z92.3 Personal history of irradiation
CPT/HCPCS: 77063; 77067; G0101; G0123

== ENCOUNTER → 2020-07-17 | Outpatient (REF) | payer MEDICARE, OTHER | LOC: M SFHCWAGY 18:13 | PROVIDERS: ATTEND Nurse Practitioner Family | DX: Z12.4 Encounter for screening for malignant neoplasm of cervix (principal); N95.2 Postmenopausal atrophic vaginitis ==

== ENCOUNTER → 2020-10-15 | Outpatient (REF) | payer MEDICARE, OTHER ==
[~2020-10-15] MED LIST changes: -MONT10TA4 PO; +MONT5TAB2 PO
== END ==
LOC: M SFHCPLAZ 16:53
PROVIDERS: ATTEND Nurse Practitioner Adult Health
DX: Z20.822 Contact with and (suspected) exposure to COVID-19 (principal)

== ENCOUNTER → 2020-10-15 | Outpatient (REF) | payer MEDICARE, OTHER ==
[~2020-10-15] MED LIST changes: +GABA-282 PO; -GABA-843 PO; +MONT10TA10 PO; -MONT5TAB2 PO
[2020-10-15 18:00] LABS: ALBUMIN 3.8 GM/DL (3.2-5.2); ALT/SGPT 43 U/L (12-78); BILIRUBIN,TOTAL 0.3 MG/DL (0.2-1.0); BLOOD UREA NITROGEN 22 MG/DL (7-18); CALCIUM LEVEL 9.3 MG/DL (8.8-10.2); CARBON DIOXIDE LEVEL 30 MEQ/L (21-32); CHLORIDE LEVEL 102 MEQ/L (98-107); CHOLESTEROL LEVEL 187 MG/DL (<200); CHOLESTEROL RISK RATIO 1.571 (<5); CREATININE FOR GFR 0.82 MG/DL (0.55-1.30); GLOMERULAR FILTRATION RATE > 60.0 (>45); GLUCOSE, FASTING 287 MG/DL (70-100); HDL CHOLESTEROL 119 MG/DL (>40); LDL CHOLESTEROL 56 MG/DL (<100); NON-HDL-C 68 MG/DL; POTASSIUM SERUM 4.9 MEQ/L (3.5-5.1); SODIUM LEVEL 137 MEQ/L (136-145); TOTAL PROTEIN 6.5 GM/DL (6.4-8.2); TRIGLYCERIDES LEVEL 58 MG/DL (<150)
[2020-10-15 18:02] LABS: TOTAL 25(OH) VITAMIN D 60.8 NG/ML (30.0-100.0)
[2020-10-15 18:04] LABS: CREATININE, URINE 37.9 MG/DL; MALB URINE SIEMENS 26.1 MG/L; MAU/CREAT RATIO 68.8 MCG/MG (0.0-30.0)
[2020-10-15 19:49] LABS: HEMOGLOBIN A1c 7.9 %
== END ==
LOC: M SFHCPLAZ 14:01
PROVIDERS: ATTEND Nurse Practitioner Adult Health
DX: E10.59 Type 1 diabetes mellitus with other circulatory complications (principal); E55.9 Vitamin D deficiency, unspecified; E78.2 Mixed hyperlipidemia
CPT/HCPCS: 36415; 80053; 80061; 82043; 82306; 83036; 84443; G0463; U0003

== ENCOUNTER → 2021-01-11 | Outpatient (CLI) | payer MEDICARE, BC, OTHER ==
--- NOTE | 2021-01-11 14:13 | REP ---
INDICATION: MALIGNANT NEOPLASM RT LUNG. COMPARISON: Chest CT without IV contrast dated 10/12/2020. TECHNIQUE: Chest CT without IV contrast. FINDINGS: The known spiculated nodule posteriorly in the right upper lobe abutting the major fissure is again identified and has increased in size today measuring 2.4 cm, (previously 1.5 cm. The major fissure appears thickened, as previously. There are no new lung nodules or masses. There are no other enlarging lung nodules. Stable biapical pleuroparenchymal scarring is unchanged. There is no mediastinal lymph node enlargement. This is unchanged. There is no axillary lymphadenopathy. This is unchanged. In the absence of IV contrast the study is insensitive for hilar lymph node enlargement. Thoracic aorta is unremarkable except for calcified atheroma. Cardiac size is normal. There is a pacemaker. No pericardial effusion. Upper abdomen: There is no adrenal nodule or mass. The visualized areas of the unenhanced liver, pancreas and spleen are unremarkable. IMPRESSION: The known is a spiculated right upper lobe lung mass has increased in size. The mass is adjacent to the major fissure and there is thickening of the major fissure. This is unchanged. No other interval changes are identified. <Electronically signed by Aung Levy > 01/11/21 [id number]
== END ==
LOC: M RAD 13:08
PROVIDERS: ATTEND Radiology Radiation Oncology
DX: C34.31 Malignant neoplasm of lower lobe, right bronchus or lung (principal)

== ENCOUNTER → 2021-01-29 | Outpatient (REF) | payer MEDICARE, BC, OTHER | LOC: M SFHCPLAZ 13:28 | PROVIDERS: ATTEND Physician Assistant | DX: J02.9 Acute pharyngitis, unspecified (principal) | CPT/HCPCS: 87880; G0463 ==

== ENCOUNTER → 2021-05-05 | Outpatient (CLI) | payer MEDICARE, BC, OTHER ==
[~2021-05-05] MED LIST changes: +ALBU83IN INH; +ASPI81TA26 PO; +BACL10TA2 PO; +ERGO500029 PO; +GABA600T4 PO; +INSUH10VL SC; +QUIN20TA48 PO; +SING10TA32 PO; +XELJ11TA PO
== END ==
LOC: M LABSMTC 10:11
PROVIDERS: ATTEND Anesthesiology
DX: Z01.812 Encounter for preprocedural laboratory examination (principal); Z20.822 Contact with and (suspected) exposure to COVID-19

== ENCOUNTER → 2021-05-06 | Outpatient (REF) | payer MEDICARE, BC, OTHER ==
[2021-05-06 17:15] LABS: CREATININE, URINE 21.2 MG/DL; MALB URINE SIEMENS 37.3 MG/L; MAU/CREAT RATIO 175.9 MCG/MG (0.0-30.0)
== END ==
LOC: M LAB REF 15:48
PROVIDERS: ATTEND Internal Medicine Endocrinology, Diabetes & Metabolism
DX: E10.65 Type 1 diabetes mellitus with hyperglycemia (principal)
CPT/HCPCS: 82043; G0463

== ENCOUNTER 2021-05-10 12:53 | Day surgery (SDC) | payer MEDICARE, BC, OTHER ==
[~2021-05-10] VITALS: Ht 172.7 cm; Wt 76.7 kg
[~2021-05-10 12:53] MED LIST changes: +NS 1,000 ML IV ONE
[2021-05-10] MEDS ORDERED: LIDOCAINE 2% 100MG/5ML SDV (FOR ANES.) As Ordered ONE (13:36)
[2021-05-10] MEDS ORDERED: propofoL 200 MG/20 ML VIAL As Ordered ONE ×2 (13:54→14:42)
--- NOTE | 2021-05-10 14:55 | ROOR ---
Patient Name: Stephie Dunne Procedure Date: 05/10/2021 2:31 PM Date of : 1955 Age: 65 Room: [facility] Gender: Female Note Status: Finalized Procedure: Total Colonoscopy to Cecum Indications: Screening for colorectal malignant neoplasm Providers: Tim Alvarez MD Referring MD: Perla Meyer NP Requesting Provider: Medicines: Monitored Anesthesia Care Complications: No immediate complications. Procedure: Pre-Anesthesia Assessment: - The heart rate, respiratory rate, oxygen saturations, blood pressure, adequacy of pulmonary ventilation, and response to care were monitored throughout the procedure. The Colonoscope was introduced through the anus and advanced to the cecum, identified by appendiceal orifice and ileocecal valve. The colonoscopy was performed without difficulty. The patient tolerated the procedure well. The quality of the bowel preparation was excellent. Findings: The perianal and digital rectal examinations were normal. Non-bleeding internal hemorrhoids were found during retroflexion. The hemorrhoids were small and Grade I (internal hemorrhoids that do not prolapse). Scattered small-mouthed diverticula were found in the recto-sigmoid colon, sigmoid colon and descending colon. The exam was otherwise without abnormality on direct and retroflexion views. Impression: - Non-bleeding internal hemorrhoids. - Diverticulosis in the recto-sigmoid colon, in the sigmoid colon and in the descending colon. - The examination was otherwise normal on direct and retroflexion views. - No specimens collected. - The exam was otherwise normal to the cecum. Recommendation: - Patient has a contact number available for emergencies. The signs and symptoms of potential delayed complications were discussed with the patient. Return to normal activities tomorrow. Written discharge instructions were provided to the patient. - High fiber diet. - Discharge patient to home. - Continue present medications. - Repeat colonoscopy in 10 years for screening purposes. - Return to referring physician. - The findings and recommendations were discussed with the patient's family. Procedure Code(s): --- Professional --- 59570, Colonoscopy, flexible; diagnostic, including collection of specimen(s) by brushing or washing, when performed (separate procedure) Diagnosis Code(s): --- Professional --- Z12.11, Encounter for screening for malignant neoplasm of colon K64.0, First degree hemorrhoids K57.30, Diverticulosis of large intestine without perforation or abscess without bleeding CPT copyright 2019 [employer]. All rights reserved. The codes documented in this report are preliminary and upon internet application developer review may be revised to meet current compliance requirements. Tim Alvarez MD Tim Alvarez MD 05/10/2021 2:55:35 PM Electronically signed by Tim Alvarez MD Number of Addenda: 0 Note Initiated On: 05/10/2021 2:31 PM Estimated Blood Loss: Estimated blood loss: none.
[2021-05-10 15:25] VITALS: BP 194/71
== END 2021-05-10 15:25 | disposition home or self-care (01) ==
LOC: M OPP 12:53
PROVIDERS: ATTEND Internal Medicine Gastroenterology
DX: Z12.11 Encounter for screening for malignant neoplasm of colon (principal); K64.0 First degree hemorrhoids; K57.30 Diverticulosis of large intestine without perforation or abscess without bleeding; I25.10 Atherosclerotic heart disease of native coronary artery without angina pectoris; I10 Essential (primary) hypertension; E78.5 Hyperlipidemia, unspecified; E10.9 Type 1 diabetes mellitus without complications; K21.9 Gastro-esophageal reflux disease without esophagitis; M06.9 Rheumatoid arthritis, unspecified; F41.9 Anxiety disorder, unspecified; F17.210 Nicotine dependence, cigarettes, uncomplicated; J44.9 Chronic obstructive pulmonary disease, unspecified; Z85.118 Personal history of other malignant neoplasm of bronchus and lung; Z92.3 Personal history of irradiation; Z95.0 Presence of cardiac pacemaker; Z95.5 Presence of coronary angioplasty implant and graft; Z95.1 Presence of aortocoronary bypass graft; Z96.643 Presence of artificial hip joint, bilateral; Z88.8 Allergy status to other drugs, medicaments and biological substances; Z91.09 Other allergy status, other than to drugs and biological substances; Z79.4 Long term (current) use of insulin; Z79.82 Long term (current) use of aspirin; Z79.899 Other long term (current) drug therapy

== ENCOUNTER → 2021-05-31 | Outpatient (CLI) | payer MEDICARE, BC, OTHER ==
[~2021-05-31] MED LIST changes: -NS 1,000 ML IV ONE
== END ==
LOC: M LABSMTC 11:23
PROVIDERS: ATTEND Family Medicine
DX: Z20.822 Contact with and (suspected) exposure to COVID-19 (principal)
CPT/HCPCS: C9803; U0003

== ENCOUNTER 2021-06-02 18:01 | Outpatient (CLI) | payer MEDICARE, BC, OTHER ==
[~2021-06-02] VITALS: Ht 172.7 cm; Wt 68.0 kg
[~2021-06-02 18:01] MED LIST changes: +ALBUTEROL 90 MCG/ACT 8GM HFA INHALER INH PRN; +ALBUTEROL SULFATE 2.5 MG/0.5 ML INH NEB SOLN INH PRN; +EPINEPHrine INJ 1 MG/ML 1ML AMP IM PRN; +NS 1,000 ML IV SCH; +diphenhydrAMINE 50MG/ML VIAL (J1200) IV PRN; +methylPREDNISolone 125MG 2ML VIAL IV PRN
[2021-06-02 19:18] VITALS: BP 173/60
[2021-06-02] MEDS ORDERED: diphenhydrAMINE 50MG/ML VIAL (J1200) IV ONE (19:30)
[2021-06-02] MEDS ORDERED: methylPREDNISolone 40MG 1ML VIAL IV ONE (19:30)
[2021-06-02 20:32] VITALS: BP 176/64
[2021-06-02 20:37] VITALS: BP 176/67
[2021-06-02] MEDS ORDERED: SOTROVIMAB 500 MG in NS 100 ML IV ONE (21:00)
[2021-06-02 21:22] VITALS: BP 156/65
[2021-06-02 22:41] VITALS: BP 153/84
== END 2021-06-02 22:50 ==
LOC: M OPCLI4 18:01 → M 4MAIN 18:55 → M OPCLI4 22:50
PROVIDERS: ATTEND Nurse Practitioner Adult Health
DX: U07.1 COVID-19 (principal); Z88.8 Allergy status to other drugs, medicaments and biological substances
CPT/HCPCS: 96375; J1200; J2920; M0243; Q0247

== ENCOUNTER → 2021-07-20 | Outpatient (CLI) | payer MEDICARE, BC, OTHER ==
[~2021-07-20] MED LIST changes: -ALBUTEROL 90 MCG/ACT 8GM HFA INHALER INH PRN; -ALBUTEROL SULFATE 2.5 MG/0.5 ML INH NEB SOLN INH PRN; -EPINEPHrine INJ 1 MG/ML 1ML AMP IM PRN; -NS 1,000 ML IV SCH; -diphenhydrAMINE 50MG/ML VIAL (J1200) IV PRN; -methylPREDNISolone 125MG 2ML VIAL IV PRN
--- NOTE | 2021-07-20 11:23 | REP ---
INDICATION: SOPD, HX OF COVID, MALIGNANT NEOPLASM OF RIGHT LOWER LOBE COMPARISON: 10/22/2018 TECHNIQUE: PA and lateral. FINDINGS: The mediastinum and cardiac silhouette are relatively normal/stable. Pacemaker and prior CABG again noted. Lung bauman demonstrate chronic interstitial changes. Small focal area of opacity in the right mid lung zone is nonspecific. No further acute consolidation, effusion, or pneumothorax identified. The skeletal structures are intact and normal. IMPRESSION: Small area of opacity in the right mid lung zone may warrant follow-up to resolution. <Electronically signed by Carlos Mckeon > 07/20/21 1114
== END ==
LOC: M WUC 10:36
PROVIDERS: ATTEND Nurse Practitioner Adult Health
DX: J44.9 Chronic obstructive pulmonary disease, unspecified (principal); Z72.0 Tobacco use; C34.31 Malignant neoplasm of lower lobe, right bronchus or lung; Z86.16 Personal history of COVID-19; R91.8 Other nonspecific abnormal finding of lung field; Z95.0 Presence of cardiac pacemaker; Z95.1 Presence of aortocoronary bypass graft; J84.9 Interstitial pulmonary disease, unspecified

== ENCOUNTER → 2021-07-27 | Outpatient (CLI) | payer MEDICARE, BC, OTHER ==
--- NOTE | 2021-07-27 11:44 | REP ---
INDICATION: COPD EXACERBATION. COMPARISON: Multiple the latest 07/20/2021 TECHNIQUE: PA and lateral FINDINGS: The cardiomediastinal silhouette is stable. The heart is not enlarged. The dual chamber bipolar pacemaker devices unchanged. There are chronic changes seen in the right lung base status quo. No acute patchy parenchymal opacities or pleural effusions have developed. There is no significant change in appearance of the osseous structures. IMPRESSION: Stable appearing chronic changes without evidence of acute cardiopulmonary disease. <Electronically signed by Sammy Hoffman > 07/27/21 [id number]
== END ==
LOC: M WUC 11:14
PROVIDERS: ATTEND Nurse Practitioner Adult Health
DX: J44.1 Chronic obstructive pulmonary disease with (acute) exacerbation (principal)

== ENCOUNTER → 2021-08-05 | Outpatient (CLI) | payer MEDICARE, OTHER, BC ==
[2021-08-05 16:43] LABS: HEMATOCRIT 35.1 % (36.0-47.0); HEMOGLOBIN 11.4 g/dl (12.0-15.5); MEAN CORPUSCULAR HEMOGLOBIN 32.5 pg (27.0-33.0); MEAN CORPUSCULAR HGB CONC 32.5 g/dl (32.0-36.5); PLATELET COUNT, AUTOMATED 314 10^3/uL (150-450); RED BLOOD COUNT 3.51 10^6/uL (4.00-5.40); WHITE BLOOD COUNT 6.8 10^3/uL (4.0-10.0)
[2021-08-05 17:06] LABS: HEMOGLOBIN A1c 8.5 %
[2021-08-05 17:11] LABS: CREATININE, URINE 18.9 MG/DL; MALB URINE SIEMENS 69.9 MG/L; MAU/CREAT RATIO 369.8 MCG/MG (0.0-30.0)
[2021-08-05 17:17] LABS: ALT/SGPT 29 U/L (12-78); BILIRUBIN,TOTAL 0.4 MG/DL (0.2-1.0); BLOOD UREA NITROGEN 11 MG/DL (7-18); CALCIUM LEVEL 9.2 MG/DL (8.8-10.2); CARBON DIOXIDE LEVEL 31 MEQ/L (21-32); CHLORIDE LEVEL 99 MEQ/L (98-107); CHOLESTEROL LEVEL 151 MG/DL (<200); CHOLESTEROL RISK RATIO 1.556 (<5); CREATININE FOR GFR 0.71 MG/DL (0.55-1.30); GLOMERULAR FILTRATION RATE > 60.0 (>45); GLUCOSE, FASTING 242 MG/DL (70-100); HDL CHOLESTEROL 97 MG/DL (>40); LDL CHOLESTEROL 45 MG/DL (<100); NON-HDL-C 54 MG/DL; POTASSIUM SERUM 4.4 MEQ/L (3.5-5.1); SODIUM LEVEL 133 MEQ/L (136-145); THYROID STIMULATING HORMONE 0.755 uIU/ML (0.358-3.740); TOTAL 25(OH) VITAMIN D 58.1 NG/ML (30.0-100.0); TRIGLYCERIDES LEVEL 45 MG/DL (<150)
== END ==
LOC: M WUC 14:38
PROVIDERS: ATTEND Nurse Practitioner Adult Health
DX: E78.2 Mixed hyperlipidemia (principal); I10 Essential (primary) hypertension; E10.59 Type 1 diabetes mellitus with other circulatory complications; E55.9 Vitamin D deficiency, unspecified
CPT/HCPCS: 36415; 80053; 80061; 82043; 82306; 83036; 84443; 85027; G0463

== ENCOUNTER → 2021-09-08 | Outpatient (CLI) | payer MEDICARE, BC, OTHER ==
[~2021-09-08] MED LIST changes: -MONT10TA10 PO; +MONT10TA97 PO; +aspart insulin
== END ==
LOC: M WHC 14:15
PROVIDERS: ATTEND Nurse Practitioner Adult Health
DX: Z12.31 Encounter for screening mammogram for malignant neoplasm of breast (principal); Z80.0 Family history of malignant neoplasm of digestive organs; Z92.3 Personal history of irradiation; R92.1 Mammographic calcification found on diagnostic imaging of breast; Z85.118 Personal history of other malignant neoplasm of bronchus and lung

== ENCOUNTER → 2021-09-21 | Outpatient (CLI) | payer MEDICARE, BC, OTHER ==
[~2021-09-21] MED LIST changes: -aspart insulin
== END ==
LOC: M WUC 10:25
PROVIDERS: ATTEND Physician Assistant
DX: R09.89 Other specified symptoms and signs involving the circulatory and respiratory systems (principal); J44.1 Chronic obstructive pulmonary disease with (acute) exacerbation; Z95.1 Presence of aortocoronary bypass graft
CPT/HCPCS: 71046; 87426; G0463; U0003

== ENCOUNTER → 2021-09-24 | Outpatient (CLI) | payer MEDICARE, BC, OTHER ==
[~2021-09-24] MED LIST changes: +aspart insulin
[2021-09-24 16:41] LABS: BASO % 0.2 % (0.0-1.0); HEMATOCRIT 36.9 % (36.0-47.0); HEMOGLOBIN 12.3 g/dl (12.0-15.5); LYMPH # 0.4 10^3/uL (1.5-5.0); LYMPH % 3.6 % (24.0-44.0); MEAN CORPUSCULAR HEMOGLOBIN 32.4 pg (27.0-33.0); MEAN CORPUSCULAR HGB CONC 33.3 g/dl (32.0-36.5); MEAN CORPUSCULAR VOLUME 97.1 fl (80.0-96.0); MONO # 0.3 10^3/uL (0.0-0.8); MONO % 2.6 % (2.0-8.0); NEUTROPHILS # 11.4 10^3/uL (1.5-8.5); NEUTROPHILS % 92.7 % (36.0-66.0); PLATELET COUNT, AUTOMATED 348 10^3/uL (150-450); WHITE BLOOD COUNT 12.3 10^3/uL (4.0-10.0)
[2021-09-24 16:58] LABS: ALBUMIN 3.6 GM/DL (3.2-5.2); ALT/SGPT 50 U/L (12-78); C REACTIVE PROTEIN QUANTITATIV 0.42 MG/DL (0.00-0.30); CREATININE FOR GFR 0.82 MG/DL (0.55-1.30); GLOMERULAR FILTRATION RATE > 60.0 (>45)
[2021-09-24 17:13] LABS: ERYTHROCYTE SEDIMENTATION RATE 14 mm/hr (0-30)
== END ==
LOC: M WUC 14:30
PROVIDERS: ATTEND Internal Medicine Rheumatology
DX: Z51.81 Encounter for therapeutic drug level monitoring (principal); Z79.899 Other long term (current) drug therapy

== ENCOUNTER → 2021-09-30 | Outpatient (REF) | payer MEDICARE, OTHER ==
[~2021-09-30] MED LIST changes: -aspart insulin
== END ==
LOC: M SFHCPLAZ 12:47
PROVIDERS: ATTEND Physician Assistant
DX: J44.1 Chronic obstructive pulmonary disease with (acute) exacerbation (principal)
CPT/HCPCS: 87426; 87804; 96372; J1040; U0003

== ENCOUNTER → 2021-10-14 | Outpatient (REF) | payer MEDICARE, OTHER ==
[~2021-10-14] MED LIST changes: +MONT10TA10 PO; -MONT10TA97 PO
== END ==
LOC: M SFHCPLAZ 12:42
PROVIDERS: ATTEND Physician Assistant
DX: R09.81 Nasal congestion (principal)

== ENCOUNTER → 2021-10-14 | Outpatient (CLI) | payer MEDICARE, OTHER ==
[~2021-10-14] MED LIST changes: +ISOVUE-370 76% 100ML VIAL As Ordered ONE
[2021-10-14 12:22] LABS: BASO % 0.1 % (0.0-1.0); EOS # 0.1 10^3/uL (0.0-0.5); EOS % 0.5 % (0.0-3.0); HEMATOCRIT 34.5 % (36.0-47.0); HEMOGLOBIN 11.3 g/dl (12.0-15.5); LYMPH # 1.1 10^3/uL (1.5-5.0); LYMPH % 6.3 % (24.0-44.0); MEAN CORPUSCULAR HEMOGLOBIN 32.8 pg (27.0-33.0); MEAN CORPUSCULAR HGB CONC 32.8 g/dl (32.0-36.5); MEAN CORPUSCULAR VOLUME 100.3 fl (80.0-96.0); MONO # 1.2 10^3/uL (0.0-0.8); MONO % 6.9 % (2.0-8.0); NEUTROPHILS # 14.6 10^3/uL (1.5-8.5); NEUTROPHILS % 85.5 % (36.0-66.0); PLATELET COUNT, AUTOMATED 257 10^3/uL (150-450); RED BLOOD COUNT 3.44 10^6/uL (4.00-5.40); WHITE BLOOD COUNT 17.1 10^3/uL (4.0-10.0)
[2021-10-14 12:49] LABS: ALBUMIN 3.1 GM/DL (3.2-5.2); ALT/SGPT 58 U/L (12-78); BILIRUBIN,TOTAL 0.5 MG/DL (0.2-1.0); BLOOD UREA NITROGEN 13 MG/DL (7-18); CALCIUM LEVEL 8.8 MG/DL (8.8-10.2); CARBON DIOXIDE LEVEL 32 MEQ/L (21-32); CHLORIDE LEVEL 100 MEQ/L (98-107); CREATININE FOR GFR 0.59 MG/DL (0.55-1.30); GLOMERULAR FILTRATION RATE > 60.0 (>45); GLUCOSE, FASTING 99 MG/DL (70-100); LIPASE 60 U/L (73-393); POTASSIUM SERUM 4.5 MEQ/L (3.5-5.1); SODIUM LEVEL 135 MEQ/L (136-145); TOTAL PROTEIN 6.5 GM/DL (6.4-8.2)
== END ==
LOC: M RAD 11:38
PROVIDERS: ATTEND Physician Assistant
DX: R10.84 Generalized abdominal pain (principal); K63.89 Other specified diseases of intestine; I70.0 Atherosclerosis of aorta; R19.7 Diarrhea, unspecified; R09.81 Nasal congestion
CPT/HCPCS: 36415; 74177; 80053; 83690; 85025; Q9967

== ENCOUNTER → 2021-10-15 | Outpatient (REF) | payer MEDICARE, OTHER ==
[~2021-10-15] MED LIST changes: -ISOVUE-370 76% 100ML VIAL As Ordered ONE; -MONT10TA10 PO; +MONT10TA97 PO
== END ==
LOC: M SFHCPLAZ 15:41
PROVIDERS: ATTEND Physician Assistant
DX: R10.84 Generalized abdominal pain (principal); R19.7 Diarrhea, unspecified

== ENCOUNTER → 2021-10-19 | Outpatient (CLI) | payer MEDICARE, OTHER ==
[2021-10-19 17:10] LABS: BASO % 0.5 % (0.0-1.0); EOS # 0.1 10^3/uL (0.0-0.5); EOS % 0.6 % (0.0-3.0); HEMOGLOBIN 10.7 g/dl (12.0-15.5); LYMPH # 1.2 10^3/uL (1.5-5.0); LYMPH % 13.8 % (24.0-44.0); MEAN CORPUSCULAR HEMOGLOBIN 32.4 pg (27.0-33.0); MEAN CORPUSCULAR HGB CONC 31.5 g/dl (32.0-36.5); MONO # 1.3 10^3/uL (0.0-0.8); MONO % 15.2 % (2.0-8.0); NEUTROPHILS # 5.9 10^3/uL (1.5-8.5); NEUTROPHILS % 69.1 % (36.0-66.0); PLATELET COUNT, AUTOMATED 407 10^3/uL (150-450); WHITE BLOOD COUNT 8.6 10^3/uL (4.0-10.0)
[2021-10-19 20:03] LABS: ALT/SGPT 48 U/L (12-78); BILIRUBIN,TOTAL 0.2 MG/DL (0.2-1.0); BLOOD UREA NITROGEN 19 MG/DL (7-18); CALCIUM LEVEL 8.3 MG/DL (8.8-10.2); CARBON DIOXIDE LEVEL 31 MEQ/L (21-32); CHLORIDE LEVEL 99 MEQ/L (98-107); CREATININE FOR GFR 0.87 MG/DL (0.55-1.30); GLOMERULAR FILTRATION RATE > 60.0 (>45); GLUCOSE, FASTING 166 MG/DL (70-100); POTASSIUM SERUM 5.3 MEQ/L (3.5-5.1); SODIUM LEVEL 133 MEQ/L (136-145); TOTAL PROTEIN 5.5 GM/DL (6.4-8.2)
== END ==
LOC: M WUC 14:31
PROVIDERS: ATTEND Physician Assistant
DX: R10.84 Generalized abdominal pain (principal)

== ENCOUNTER → 2021-10-25 | Outpatient (CLI) | payer MEDICARE, BC, OTHER ==
[2021-10-25 15:55] LABS: ALBUMIN 2.8 GM/DL (3.2-5.2); ALT/SGPT 38 U/L (12-78); C REACTIVE PROTEIN QUANTITATIV 2.91 MG/DL (0.00-0.30); CREATININE FOR GFR 0.94 MG/DL (0.55-1.30); GLOMERULAR FILTRATION RATE > 60.0 (>45)
[2021-10-25 15:56] LABS: BASO % 0.2 % (0.0-1.0); EOS % 0.2 % (0.0-3.0); HEMATOCRIT 35.5 % (36.0-47.0); HEMOGLOBIN 11.3 g/dl (12.0-15.5); LYMPH # 1.8 10^3/uL (1.5-5.0); LYMPH % 14.6 % (24.0-44.0); MEAN CORPUSCULAR HEMOGLOBIN 32.5 pg (27.0-33.0); MEAN CORPUSCULAR HGB CONC 31.8 g/dl (32.0-36.5); MONO # 1.2 10^3/uL (0.0-0.8); MONO % 9.6 % (2.0-8.0); NEUTROPHILS # 9.2 10^3/uL (1.5-8.5); NEUTROPHILS % 74.5 % (36.0-66.0); PLATELET COUNT, AUTOMATED 442 10^3/uL (150-450); RED BLOOD COUNT 3.48 10^6/uL (4.00-5.40); WHITE BLOOD COUNT 12.4 10^3/uL (4.0-10.0)
[2021-10-25 16:25] LABS: ERYTHROCYTE SEDIMENTATION RATE 43 mm/hr (0-30)
== END ==
LOC: M WUC 12:08
PROVIDERS: ATTEND Internal Medicine Rheumatology
DX: Z51.81 Encounter for therapeutic drug level monitoring (principal); Z79.899 Other long term (current) drug therapy; M05.79 Rheumatoid arthritis with rheumatoid factor of multiple sites without organ or systems involvement

== ENCOUNTER → 2021-11-04 | Outpatient (CLI) | payer MEDICARE, BC, OTHER ==
[~2021-11-04] MED LIST changes: +GASTROGRAFIN SOLUTION 30ML (Q9963) As Ordered ONE; +ISOVUE-370 76% 100ML VIAL As Ordered ONE
== END ==
LOC: M RAD 12:14
PROVIDERS: ATTEND Physician Assistant
DX: R19.7 Diarrhea, unspecified (principal); R93.5 Abnormal findings on diagnostic imaging of other abdominal regions, including retroperitoneum; K63.9 Disease of intestine, unspecified; J98.4 Other disorders of lung
CPT/HCPCS: 74177; Q9963; Q9967

== ENCOUNTER → 2021-12-03 | Outpatient (CLI) | payer MEDICARE, BC, OTHER ==
[~2021-12-03] MED LIST changes: -GASTROGRAFIN SOLUTION 30ML (Q9963) As Ordered ONE; -ISOVUE-370 76% 100ML VIAL As Ordered ONE; +aspart insulin
== END ==
LOC: M LABSMTC 09:33
PROVIDERS: ATTEND Anesthesiology
DX: Z01.812 Encounter for preprocedural laboratory examination (principal); Z20.822 Contact with and (suspected) exposure to COVID-19

== ENCOUNTER 2021-12-08 06:39 | Day surgery (SDC) | payer MEDICARE, BC, OTHER ==
[~2021-12-08] VITALS: Ht 172.7 cm; Wt 71.2 kg
[~2021-12-08 06:39] MED LIST changes: +NS 1,000 ML IV ONE
[2021-12-08] MEDS ORDERED: LIDOCAINE 2% 100MG/5ML SDV (FOR ANES.) As Ordered ONE (07:05)
[2021-12-08] MEDS ORDERED: propofoL 200 MG/20 ML VIAL As Ordered ONE (07:05)
[2021-12-08 08:33] VITALS: BP 161/72
== END 2021-12-08 08:43 | disposition home or self-care (01) ==
LOC: M OPP 06:39
PROVIDERS: ATTEND Surgery
DX: K63.3 Ulcer of intestine (principal); K63.89 Other specified diseases of intestine; K52.9 Noninfective gastroenteritis and colitis, unspecified; K64.1 Second degree hemorrhoids; R93.3 Abnormal findings on diagnostic imaging of other parts of digestive tract; Z79.82 Long term (current) use of aspirin; Z79.891 Long term (current) use of opiate analgesic; Z79.899 Other long term (current) drug therapy; Z88.5 Allergy status to narcotic agent; Z91.048 Other nonmedicinal substance allergy status; Z95.0 Presence of cardiac pacemaker

== ENCOUNTER → 2021-12-14 | Outpatient (CLI) | payer MEDICARE, BC, OTHER ==
[~2021-12-14] MED LIST changes: -NS 1,000 ML IV ONE
[2021-12-14 12:32] LABS: BASO % 0.3 % (0.0-1.0); EOS % 0.2 % (0.0-3.0); HEMATOCRIT 34.4 % (36.0-47.0); HEMOGLOBIN 11.2 g/dl (12.0-15.5); LYMPH # 1.5 10^3/uL (1.5-5.0); LYMPH % 11.8 % (24.0-44.0); MEAN CORPUSCULAR HEMOGLOBIN 31.4 pg (27.0-33.0); MEAN CORPUSCULAR HGB CONC 32.6 g/dl (32.0-36.5); MEAN CORPUSCULAR VOLUME 96.4 fl (80.0-96.0); NEUTROPHILS # 9.7 10^3/uL (1.5-8.5); PLATELET COUNT, AUTOMATED 418 10^3/uL (150-450); RED BLOOD COUNT 3.57 10^6/uL (4.00-5.40); WHITE BLOOD COUNT 12.3 10^3/uL (4.0-10.0)
[2021-12-14 13:04] LABS: ALBUMIN 2.9 GM/DL (3.2-5.2); ALT/SGPT 26 U/L (12-78); C REACTIVE PROTEIN QUANTITATIV 6.26 MG/DL (0.00-0.30); CREATININE FOR GFR 0.68 MG/DL (0.55-1.30); ERYTHROCYTE SEDIMENTATION RATE 51 mm/hr (0-30); GLOMERULAR FILTRATION RATE > 60.0 (>45)
== END ==
LOC: M WUC 09:35
PROVIDERS: ATTEND Internal Medicine Rheumatology
DX: M05.79 Rheumatoid arthritis with rheumatoid factor of multiple sites without organ or systems involvement (principal); Z79.899 Other long term (current) drug therapy

== ENCOUNTER → 2022-02-11 | Outpatient (CLI) | payer MEDICARE, BC, OTHER ==
[2022-02-11 17:23] LABS: BASO % 0.4 % (0.0-1.0); EOS % 0.5 % (0.0-3.0); HEMATOCRIT 32.8 % (36.0-47.0); HEMOGLOBIN 10.3 g/dl (12.0-15.5); LYMPH # 1.5 10^3/uL (1.5-5.0); LYMPH % 17.2 % (24.0-44.0); MEAN CORPUSCULAR HEMOGLOBIN 30.7 pg (27.0-33.0); MEAN CORPUSCULAR HGB CONC 31.4 g/dl (32.0-36.5); MEAN CORPUSCULAR VOLUME 97.6 fl (80.0-96.0); MONO # 0.8 10^3/uL (0.0-0.8); MONO % 9.6 % (2.0-8.0); NEUTROPHILS % 71.5 % (36.0-66.0); PLATELET COUNT, AUTOMATED 397 10^3/uL (150-450); RED BLOOD COUNT 3.36 10^6/uL (4.00-5.40); WHITE BLOOD COUNT 8.4 10^3/uL (4.0-10.0)
[2022-02-11 17:43] LABS: ALBUMIN 2.9 GM/DL (3.2-5.2); ALT/SGPT 24 U/L (12-78); BILIRUBIN,TOTAL 0.2 MG/DL (0.2-1.0); BLOOD UREA NITROGEN 16 MG/DL (7-18); C REACTIVE PROTEIN QUANTITATIV 8.82 MG/DL (0.00-0.30); CALCIUM LEVEL 8.5 MG/DL (8.8-10.2); CARBON DIOXIDE LEVEL 25 MEQ/L (21-32); CHLORIDE LEVEL 110 MEQ/L (98-107); CREATININE FOR GFR 0.67 MG/DL (0.55-1.30); GLOMERULAR FILTRATION RATE > 60.0 (>45); GLUCOSE, FASTING 192 MG/DL (70-100); POTASSIUM SERUM 4.7 MEQ/L (3.5-5.1); SODIUM LEVEL 139 MEQ/L (136-145)
[2022-02-11 18:45] LABS: ERYTHROCYTE SEDIMENTATION RATE 67 mm/hr (0-30)
[2022-02-14 11:28] LABS: LIPASE 112 U/L (73-393)
== END ==
LOC: M PLALAB 14:52
PROVIDERS: ATTEND Physician Assistant
DX: K52.9 Noninfective gastroenteritis and colitis, unspecified (principal)

== ENCOUNTER → 2022-02-12 | Outpatient (REF) | payer MEDICARE, BC, OTHER | LOC: M SFHCPLAZ 12:59 | PROVIDERS: ATTEND Physician Assistant | DX: K52.9 Noninfective gastroenteritis and colitis, unspecified (principal); Z12.10 Encounter for screening for malignant neoplasm of intestinal tract, unspecified ==

== ENCOUNTER → 2022-02-23 | Outpatient (CLI) | payer MEDICARE, BC, OTHER ==
[2022-02-23 20:20] LABS: ALBUMIN 3.3 GM/DL (3.2-5.2); BLOOD UREA NITROGEN 14 MG/DL (7-18); CALCIUM LEVEL 8.9 MG/DL (8.8-10.2); CARBON DIOXIDE LEVEL 35 MEQ/L (21-32); CHLORIDE LEVEL 103 MEQ/L (98-107); CREATININE FOR GFR 0.76 MG/DL (0.55-1.30); GLOMERULAR FILTRATION RATE > 60.0 (>45); GLUCOSE, FASTING 148 MG/DL (70-100); NT-PRO BNP 850 PG/ML (<125); PHOSPHORUS LEVEL 4.6 MG/DL (2.5-4.9); POTASSIUM SERUM 4.6 MEQ/L (3.5-5.1); SODIUM LEVEL 140 MEQ/L (136-145)
== END ==
LOC: M WUC 15:34
PROVIDERS: ATTEND Internal Medicine Cardiovascular Disease
DX: R60.0 Localized edema (principal); I11.9 Hypertensive heart disease without heart failure; R06.02 Shortness of breath

== ENCOUNTER 2022-03-03 12:57 | Emergency (ER) | payer MEDICARE, BC, OTHER ==
[~2022-03-03] VITALS: Ht 172.7 cm; Wt 69.5 kg
[2022-03-03] MEDS ORDERED: CEFD300C PO (14:59)
[2022-03-03] MEDS ORDERED: ZITHTAB PO (14:59)
[2022-03-03 15:11] VITALS: BP 162/81
[2022-03-03] MEDS ORDERED: DOXY-342 PO (15:45)
== END 2022-03-03 15:13 | disposition home or self-care (01) ==
LOC: M ED 12:57
DX: J18.9 Pneumonia, unspecified organism (principal); S22.42XA Multiple fractures of ribs, left side, initial encounter for closed fracture; W19.XXXA Unspecified fall, initial encounter; Y92.9 Unspecified place or not applicable; Y93.9 Activity, unspecified; Y99.9 Unspecified external cause status; I25.2 Old myocardial infarction; E11.9 Type 2 diabetes mellitus without complications; I10 Essential (primary) hypertension; E78.5 Hyperlipidemia, unspecified; J44.9 Chronic obstructive pulmonary disease, unspecified; Z95.5 Presence of coronary angioplasty implant and graft; Z95.1 Presence of aortocoronary bypass graft; Z95.0 Presence of cardiac pacemaker; Z80.1 Family history of malignant neoplasm of trachea, bronchus and lung; J30.9 Allergic rhinitis, unspecified; Z96.642 Presence of left artificial hip joint; F17.200 Nicotine dependence, unspecified, uncomplicated; Z82.49 Family history of ischemic heart disease and other diseases of the circulatory system; Z79.82 Long term (current) use of aspirin; Z79.899 Other long term (current) drug therapy; Z91.89 Other specified personal risk factors, not elsewhere classified; Z88.8 Allergy status to other drugs, medicaments and biological substances

== ENCOUNTER → 2022-03-17 | Outpatient (CLI) | payer MEDICARE, BC, OTHER ==
[~2022-03-17] MED LIST changes: +ALBU2.5V10 INH; -ALBU83IN INH; +CEFD300C PO; +DOXY-342 PO; +ZITHTAB PO
[2022-03-17 16:13] LABS: HEMATOCRIT 32.3 % (36.0-47.0); HEMOGLOBIN 10.2 g/dl (12.0-15.5); MEAN CORPUSCULAR HEMOGLOBIN 29.2 pg (27.0-33.0); MEAN CORPUSCULAR HGB CONC 31.6 g/dl (32.0-36.5); MEAN CORPUSCULAR VOLUME 92.6 fl (80.0-96.0); PLATELET COUNT, AUTOMATED 430 10^3/uL (150-450); RED BLOOD COUNT 3.49 10^6/uL (4.00-5.40); WHITE BLOOD COUNT 7.4 10^3/uL (4.0-10.0)
[2022-03-17 16:35] LABS: HEMOGLOBIN A1c 7.7 %
[2022-03-17 17:00] LABS: ALBUMIN 2.8 GM/DL (3.2-5.2); ALT/SGPT 24 U/L (12-78); BILIRUBIN,TOTAL 0.4 MG/DL (0.2-1.0); BLOOD UREA NITROGEN 19 MG/DL (7-18); CALCIUM LEVEL 8.3 MG/DL (8.8-10.2); CARBON DIOXIDE LEVEL 28 MEQ/L (21-32); CHLORIDE LEVEL 93 MEQ/L (98-107); FERRITIN 38 NG/ML (8-252); GLOMERULAR FILTRATION RATE > 60.0 (>45); GLUCOSE, FASTING 250 MG/DL (70-100); IRON (FE) 51 UG/DL (50-170); POTASSIUM SERUM 5.1 MEQ/L (3.5-5.1); SODIUM LEVEL 126 MEQ/L (136-145); TOTAL 25(OH) VITAMIN D 53.1 NG/ML (30.0-100.0); TOTAL IRON BINDING CAPACITY 284 UG/DL (250-450); TOTAL PROTEIN 5.8 GM/DL (6.4-8.2)
[2022-03-17 17:08] LABS: CREATININE, URINE 67.4 MG/DL; MALB URINE SIEMENS 87.4 MG/L; MAU/CREAT RATIO 129.6 MCG/MG (0.0-30.0)
== END ==
LOC: M WUC 13:00
PROVIDERS: ATTEND Nurse Practitioner Adult Health
DX: K52.9 Noninfective gastroenteritis and colitis, unspecified (principal); E55.9 Vitamin D deficiency, unspecified; E10.59 Type 1 diabetes mellitus with other circulatory complications; D64.9 Anemia, unspecified; J18.9 Pneumonia, unspecified organism; Z79.899 Other long term (current) drug therapy

== ENCOUNTER → 2022-03-18 | Outpatient (CLI) | payer MEDICARE, BC, OTHER | LOC: M WUC 15:02 | PROVIDERS: ATTEND Internal Medicine Gastroenterology | DX: K52.9 Noninfective gastroenteritis and colitis, unspecified (principal); R10.84 Generalized abdominal pain ==

== ENCOUNTER → 2022-03-21 | Outpatient (REF) | payer MEDICARE, BC, OTHER | LOC: M LAB REF 15:49 | PROVIDERS: ATTEND Internal Medicine Gastroenterology | DX: K52.9 Noninfective gastroenteritis and colitis, unspecified (principal); R10.84 Generalized abdominal pain ==

== ENCOUNTER → 2022-04-02 | Outpatient (REF) | payer MEDICARE | LOC: M SFHCPLAZ 14:50 | PROVIDERS: ATTEND Nurse Practitioner Adult Health | DX: Z86.19 Personal history of other infectious and parasitic diseases (principal); Z09 Encounter for follow-up examination after completed treatment for conditions other than malignant neoplasm ==

== ENCOUNTER → 2022-04-07 | Outpatient (CLI) | payer MEDICARE ==
[2022-04-07 16:45] LABS: BLOOD UREA NITROGEN 15 MG/DL (7-18); CALCIUM LEVEL 9.3 MG/DL (8.8-10.2); CARBON DIOXIDE LEVEL 33 MEQ/L (21-32); CHLORIDE LEVEL 95 MEQ/L (98-107); CREATININE FOR GFR 0.73 MG/DL (0.55-1.30); GLOMERULAR FILTRATION RATE > 60.0 (>45); GLUCOSE, FASTING 243 MG/DL (70-100); NT-PRO BNP 2095 PG/ML (<125); POTASSIUM SERUM 4.7 MEQ/L (3.5-5.1); SODIUM LEVEL 131 MEQ/L (136-145)
== END ==
LOC: M WUC 11:26
PROVIDERS: ATTEND Physician Assistant
DX: R60.0 Localized edema (principal)

== ENCOUNTER → 2022-04-28 | Outpatient (CLI) | payer MEDICARE ==
[2022-04-28 16:43] LABS: HEMATOCRIT 35.9 % (36.0-47.0); HEMOGLOBIN 11.4 g/dl (12.0-15.5); MEAN CORPUSCULAR HEMOGLOBIN 28.6 pg (27.0-33.0); MEAN CORPUSCULAR HGB CONC 31.8 g/dl (32.0-36.5); MEAN CORPUSCULAR VOLUME 90.2 fl (80.0-96.0); PLATELET COUNT, AUTOMATED 339 10^3/uL (150-450); RED BLOOD COUNT 3.98 10^6/uL (4.00-5.40)
[2022-04-28 17:13] LABS: BLOOD UREA NITROGEN 14 MG/DL (7-18); CALCIUM LEVEL 8.8 MG/DL (8.8-10.2); CARBON DIOXIDE LEVEL 34 MEQ/L (21-32); CHLORIDE LEVEL 95 MEQ/L (98-107); GLOMERULAR FILTRATION RATE > 60.0 (>45); GLUCOSE, FASTING 131 MG/DL (70-100); MAGNESIUM LEVEL 1.8 MG/DL (1.8-2.4); NT-PRO BNP 1377 PG/ML (<125); POTASSIUM SERUM 4.5 MEQ/L (3.5-5.1); SODIUM LEVEL 129 MEQ/L (136-145)
== END ==
LOC: M WUC 14:04
PROVIDERS: ATTEND Physician Assistant
DX: R60.0 Localized edema (principal); I11.9 Hypertensive heart disease without heart failure; I48.0 Paroxysmal atrial fibrillation

== ENCOUNTER → 2022-05-06 | Outpatient (CLI) | payer MEDICARE ==
[2022-05-06 17:06] LABS: BLOOD UREA NITROGEN 14 MG/DL (7-18); CALCIUM LEVEL 9.2 MG/DL (8.8-10.2); CARBON DIOXIDE LEVEL 31 MEQ/L (21-32); CHLORIDE LEVEL 92 MEQ/L (98-107); CREATININE FOR GFR 0.71 MG/DL (0.55-1.30); GLOMERULAR FILTRATION RATE > 60.0 (>45); GLUCOSE, FASTING 306 MG/DL (70-100); NT-PRO BNP 1693 PG/ML (<125); POTASSIUM SERUM 4.3 MEQ/L (3.5-5.1); SODIUM LEVEL 129 MEQ/L (136-145)
== END ==
LOC: M WUC 11:34
PROVIDERS: ATTEND Physician Assistant
DX: I11.9 Hypertensive heart disease without heart failure (principal); I25.10 Atherosclerotic heart disease of native coronary artery without angina pectoris

== ENCOUNTER → 2022-05-12 | Outpatient (CLI) | payer MEDICARE ==
[2022-05-12 17:50] LABS: BLOOD UREA NITROGEN 16 MG/DL (7-18); CALCIUM LEVEL 8.9 MG/DL (8.8-10.2); CARBON DIOXIDE LEVEL 31 MEQ/L (21-32); CHLORIDE LEVEL 103 MEQ/L (98-107); GLOMERULAR FILTRATION RATE > 60.0 (>45); GLUCOSE, FASTING 148 MG/DL (70-100); NT-PRO BNP 1909 PG/ML (<125); POTASSIUM SERUM 4.3 MEQ/L (3.5-5.1); SODIUM LEVEL 139 MEQ/L (136-145)
== END ==
LOC: M WUC 14:16
PROVIDERS: ATTEND Physician Assistant
DX: I11.9 Hypertensive heart disease without heart failure (principal)

== ENCOUNTER → 2022-05-16 | Outpatient (CLI) | payer MEDICARE, BC, OTHER | LOC: M RAD 07:18 | PROVIDERS: ATTEND Internal Medicine Gastroenterology | DX: K52.9 Noninfective gastroenteritis and colitis, unspecified (principal); R10.84 Generalized abdominal pain; I70.0 Atherosclerosis of aorta ==

== ENCOUNTER → 2022-05-25 | Outpatient (CLI) | payer MEDICARE, BC, OTHER | LOC: M WUC 12:11 | PROVIDERS: ATTEND Physician Assistant | DX: S22.42XD Multiple fractures of ribs, left side, subsequent encounter for fracture with routine healing (principal); I11.9 Hypertensive heart disease without heart failure; R91.8 Other nonspecific abnormal finding of lung field; Z95.0 Presence of cardiac pacemaker ==

== ENCOUNTER → 2022-05-25 | Outpatient (CLI) | payer MEDICARE, BC, OTHER ==
[2022-05-25 15:45] LABS: BLOOD UREA NITROGEN 10 MG/DL (7-18); CALCIUM LEVEL 9.1 MG/DL (8.8-10.2); CARBON DIOXIDE LEVEL 31 MEQ/L (21-32); CHLORIDE LEVEL 102 MEQ/L (98-107); CREATININE FOR GFR 0.54 MG/DL (0.55-1.30); GLOMERULAR FILTRATION RATE > 60.0 (>45); GLUCOSE, FASTING 78 MG/DL (70-100); NT-PRO BNP 1529 PG/ML (<125); POTASSIUM SERUM 4.4 MEQ/L (3.5-5.1); SODIUM LEVEL 137 MEQ/L (136-145)
== END ==
LOC: M WUC 12:18
PROVIDERS: ATTEND Physician Assistant
DX: I11.9 Hypertensive heart disease without heart failure (principal)

== ENCOUNTER → 2022-06-23 | Outpatient (CLI) | payer MEDICARE, BC, OTHER ==
[2022-06-23 17:45] LABS: BLOOD UREA NITROGEN 16 MG/DL (7-18); CALCIUM LEVEL 9.2 MG/DL (8.8-10.2); CARBON DIOXIDE LEVEL 30 MEQ/L (21-32); CHLORIDE LEVEL 101 MEQ/L (98-107); CREATININE FOR GFR 0.71 MG/DL (0.55-1.30); GLOMERULAR FILTRATION RATE > 60.0 (>45); GLUCOSE, FASTING 164 MG/DL (70-100); POTASSIUM SERUM 4.6 MEQ/L (3.5-5.1); SODIUM LEVEL 137 MEQ/L (136-145)
== END ==
LOC: M WUC 10:41
PROVIDERS: ATTEND Internal Medicine Gastroenterology
DX: Z01.812 Encounter for preprocedural laboratory examination (principal); R10.84 Generalized abdominal pain; K55.9 Vascular disorder of intestine, unspecified; R93.89 Abnormal findings on diagnostic imaging of other specified body structures

== ENCOUNTER → 2022-06-23 | Outpatient (CLI) | payer MEDICARE, BC, OTHER ==
[2022-06-23 17:15] LABS: HEMOGLOBIN 11.8 g/dl (12.0-15.5); MEAN CORPUSCULAR HEMOGLOBIN 30.3 pg (27.0-33.0); MEAN CORPUSCULAR HGB CONC 31.1 g/dl (32.0-36.5); MEAN CORPUSCULAR VOLUME 97.4 fl (80.0-96.0); PLATELET COUNT, AUTOMATED 314 10^3/uL (150-450); WHITE BLOOD COUNT 11.9 10^3/uL (4.0-10.0)
[2022-06-23 17:51] LABS: ALBUMIN 3.5 GM/DL (3.2-5.2); ALT/SGPT 26 U/L (12-78); BILIRUBIN,TOTAL 0.3 MG/DL (0.2-1.0); BLOOD UREA NITROGEN 14 MG/DL (7-18); CALCIUM LEVEL 9.6 MG/DL (8.8-10.2); CARBON DIOXIDE LEVEL 31 MEQ/L (21-32); CHLORIDE LEVEL 102 MEQ/L (98-107); CHOLESTEROL LEVEL 128 MG/DL (<200); CHOLESTEROL RISK RATIO 1.542 (<5); GLOMERULAR FILTRATION RATE > 60.0 (>45); GLUCOSE, FASTING 151 MG/DL (70-100); HDL CHOLESTEROL 83 MG/DL (>40); LDL CHOLESTEROL 36 MG/DL (<100); MAGNESIUM LEVEL 2.1 MG/DL (1.8-2.4); NON-HDL-C 45 MG/DL; NT-PRO BNP 655 PG/ML (<125); POTASSIUM SERUM 5.4 MEQ/L (3.5-5.1); SODIUM LEVEL 135 MEQ/L (136-145); TOTAL PROTEIN 6.3 GM/DL (6.4-8.2); TRIGLYCERIDES LEVEL 47 MG/DL (<150)
== END ==
LOC: M WUC 11:02
PROVIDERS: ATTEND Physician Assistant
DX: I25.10 Atherosclerotic heart disease of native coronary artery without angina pectoris (principal); I11.9 Hypertensive heart disease without heart failure; R60.0 Localized edema

== ENCOUNTER → 2022-06-28 | Outpatient (REF) | payer MEDICARE, OTHER ==
[~2022-06-28] MED LIST changes: -DOXY-342 PO; +DOXY100C81 PO
== END ==
LOC: M SFHCPLAZ 17:09
PROVIDERS: ATTEND Physician Assistant
DX: R05.1 Acute cough (principal)

== ENCOUNTER → 2022-06-29 | Outpatient (CLI) | payer MEDICARE, OTHER ==
[~2022-06-29] MED LIST changes: +DOXY-342 PO; -DOXY100C81 PO
== END ==
LOC: M WUC 14:39
PROVIDERS: ATTEND Physician Assistant
DX: E87.5 Hyperkalemia (principal)

== ENCOUNTER → 2022-07-19 | Outpatient (CLI) | payer MEDICARE, BC, OTHER ==
[~2022-07-19] MED LIST changes: -DOXY-342 PO; +DOXY100C81 PO
== END ==
LOC: M SLEEP HO 11:59
PROVIDERS: ATTEND Physician Assistant
DX: G47.9 Sleep disorder, unspecified (principal)

== ENCOUNTER → 2022-07-28 | Outpatient (CLI) | payer MEDICARE, BC, OTHER ==
[2022-07-28 16:53] LABS: BASO % 0.1 % (0.0-1.0); EOS % 0.1 % (0.0-3.0); HEMATOCRIT 37.1 % (36.0-47.0); HEMOGLOBIN 11.7 g/dl (12.0-15.5); LYMPH # 0.6 10^3/uL (1.5-5.0); LYMPH % 3.9 % (24.0-44.0); MEAN CORPUSCULAR HEMOGLOBIN 31.5 pg (27.0-33.0); MEAN CORPUSCULAR HGB CONC 31.5 g/dl (32.0-36.5); MEAN CORPUSCULAR VOLUME 99.7 fl (80.0-96.0); MONO # 1.3 10^3/uL (0.0-0.8); MONO % 8.5 % (2.0-8.0); NEUTROPHILS # 12.8 10^3/uL (1.5-8.5); NEUTROPHILS % 86.8 % (36.0-66.0); PLATELET COUNT, AUTOMATED 381 10^3/uL (150-450); RED BLOOD COUNT 3.72 10^6/uL (4.00-5.40); WHITE BLOOD COUNT 14.8 10^3/uL (4.0-10.0)
[2022-07-28 17:37] LABS: ERYTHROCYTE SEDIMENTATION RATE 2 mm/hr (0-30)
[2022-07-28 17:43] LABS: ALBUMIN 3.4 GM/DL (3.2-5.2); ALT/SGPT 39 U/L (12-78); BILIRUBIN,TOTAL 0.5 MG/DL (0.2-1.0); BLOOD UREA NITROGEN 19 MG/DL (7-18); CALCIUM LEVEL 8.6 MG/DL (8.8-10.2); CARBON DIOXIDE LEVEL 29 MEQ/L (21-32); CHLORIDE LEVEL 98 MEQ/L (98-107); CREATININE FOR GFR 0.89 MG/DL (0.55-1.30); GLOMERULAR FILTRATION RATE > 60.0 (>45); GLUCOSE, FASTING 326 MG/DL (70-100); MAGNESIUM LEVEL 2.2 MG/DL (1.8-2.4); NT-PRO BNP 3597 PG/ML (<125); POTASSIUM SERUM 4.2 MEQ/L (3.5-5.1); SODIUM LEVEL 135 MEQ/L (136-145); TOTAL PROTEIN 6.1 GM/DL (6.4-8.2)
== END ==
LOC: M WUC 11:50
PROVIDERS: ATTEND Physician Assistant
DX: I50.9 Heart failure, unspecified (principal); J90 Pleural effusion, not elsewhere classified; M19.90 Unspecified osteoarthritis, unspecified site; R05.1 Acute cough; R06.02 Shortness of breath; R60.0 Localized edema; R63.5 Abnormal weight gain

== ENCOUNTER → 2022-08-01 | Outpatient (CLI) | payer MEDICARE, BC, OTHER ==
[2022-08-01 18:57] LABS: BLOOD UREA NITROGEN 16 MG/DL (7-18); CALCIUM LEVEL 8.5 MG/DL (8.8-10.2); CARBON DIOXIDE LEVEL 37 MEQ/L (21-32); CHLORIDE LEVEL 96 MEQ/L (98-107); CREATININE FOR GFR 0.75 MG/DL (0.55-1.30); GLOMERULAR FILTRATION RATE > 60.0 (>45); GLUCOSE, FASTING 150 MG/DL (70-100); MAGNESIUM LEVEL 2.1 MG/DL (1.8-2.4); NT-PRO BNP 2902 PG/ML (<125); PHOSPHORUS LEVEL 4.5 MG/DL (2.5-4.9); POTASSIUM SERUM 3.5 MEQ/L (3.5-5.1); SODIUM LEVEL 136 MEQ/L (136-145)
== END ==
LOC: M WUC 11:05
PROVIDERS: ATTEND Physician Assistant
DX: I50.9 Heart failure, unspecified (principal)

== ENCOUNTER → 2022-08-01 | Outpatient (CLI) | payer MEDICARE, BC, OTHER | LOC: M LABSMTC 10:45 | PROVIDERS: ATTEND Surgery Vascular Surgery | DX: Z01.812 Encounter for preprocedural laboratory examination (principal); Z20.822 Contact with and (suspected) exposure to COVID-19 ==

== ENCOUNTER → 2022-08-02 | Outpatient (CLI) | payer MEDICARE, BC, OTHER ==
[~2022-08-02] MED LIST changes: +DOXY-342 PO; -DOXY100C81 PO
[2022-08-02 16:30] LABS: BASO % 0.1 % (0.0-1.0); EOS % 0.1 % (0.0-3.0); HEMATOCRIT 38.3 % (36.0-47.0); HEMOGLOBIN 11.6 g/dl (12.0-15.5); LYMPH # 0.5 10^3/uL (1.5-5.0); LYMPH % 2.5 % (24.0-44.0); MEAN CORPUSCULAR HEMOGLOBIN 30.3 pg (27.0-33.0); MEAN CORPUSCULAR HGB CONC 30.3 g/dl (32.0-36.5); MONO # 1.2 10^3/uL (0.0-0.8); MONO % 6.5 % (2.0-8.0); NEUTROPHILS # 16.6 10^3/uL (1.5-8.5); NEUTROPHILS % 90.2 % (36.0-66.0); PLATELET COUNT, AUTOMATED 360 10^3/uL (150-450); RED BLOOD COUNT 3.83 10^6/uL (4.00-5.40); WHITE BLOOD COUNT 18.3 10^3/uL (4.0-10.0)
[2022-08-02 16:48] LABS: INR 1.04; PARTIAL THROMBOPLASTIN TIME 23.5 SECONDS (24.8-34.2); PROTHROMBIN TIME 13.8 SECONDS (12.5-14.5)
[2022-08-02 17:06] LABS: BLOOD UREA NITROGEN 14 MG/DL (7-18); CALCIUM LEVEL 8.4 MG/DL (8.8-10.2); CARBON DIOXIDE LEVEL 35 MEQ/L (21-32); CHLORIDE LEVEL 93 MEQ/L (98-107); CREATININE FOR GFR 0.83 MG/DL (0.55-1.30); GLOMERULAR FILTRATION RATE > 60.0 (>45); GLUCOSE, FASTING 193 MG/DL (70-100); POTASSIUM SERUM 4.6 MEQ/L (3.5-5.1); SODIUM LEVEL 133 MEQ/L (136-145)
== END ==
LOC: M WUC 11:40
PROVIDERS: ATTEND Surgery Vascular Surgery
DX: K55.1 Chronic vascular disorders of intestine (principal)

== ENCOUNTER → 2022-08-08 | Outpatient (CLI) | payer MEDICARE, BC, OTHER ==
[~2022-08-08] MED LIST changes: -DOXY-342 PO; +DOXY100C81 PO
[2022-08-08 16:52] LABS: BASO % 0.2 % (0.0-1.0); EOS # 0.1 10^3/uL (0.0-0.5); EOS % 0.5 % (0.0-3.0); HEMATOCRIT 36.7 % (36.0-47.0); HEMOGLOBIN 11.2 g/dl (12.0-15.5); LYMPH # 0.9 10^3/uL (1.5-5.0); LYMPH % 6.6 % (24.0-44.0); MEAN CORPUSCULAR HEMOGLOBIN 30.3 pg (27.0-33.0); MEAN CORPUSCULAR HGB CONC 30.5 g/dl (32.0-36.5); MEAN CORPUSCULAR VOLUME 99.2 fl (80.0-96.0); MONO # 1.2 10^3/uL (0.0-0.8); MONO % 8.9 % (2.0-8.0); NEUTROPHILS # 10.8 10^3/uL (1.5-8.5); NEUTROPHILS % 83.3 % (36.0-66.0); PLATELET COUNT, AUTOMATED 367 10^3/uL (150-450)
[2022-08-08 17:44] LABS: ALBUMIN 2.7 GM/DL (3.2-5.2); BLOOD UREA NITROGEN 14 MG/DL (7-18); CALCIUM LEVEL 8.6 MG/DL (8.8-10.2); CARBON DIOXIDE LEVEL 34 MEQ/L (21-32); CHLORIDE LEVEL 100 MEQ/L (98-107); CREATININE FOR GFR 0.71 MG/DL (0.55-1.30); GLOMERULAR FILTRATION RATE > 60.0 (>45); GLUCOSE, FASTING 286 MG/DL (70-100); LIPASE 62 U/L (73-393); MAGNESIUM LEVEL 1.8 MG/DL (1.8-2.4); NT-PRO BNP 2463 PG/ML (<125); PHOSPHORUS LEVEL 3.9 MG/DL (2.5-4.9); SODIUM LEVEL 137 MEQ/L (136-145)
== END ==
LOC: M WUC 11:35
PROVIDERS: ATTEND Physician Assistant
DX: I50.9 Heart failure, unspecified (principal); D72.829 Elevated white blood cell count, unspecified; R10.84 Generalized abdominal pain

== ENCOUNTER → 2022-08-08 | Outpatient (CLI) | payer MEDICARE, BC, OTHER | LOC: M LABSMTC 10:45 | PROVIDERS: ATTEND Surgery Vascular Surgery | DX: Z01.812 Encounter for preprocedural laboratory examination (principal); Z20.822 Contact with and (suspected) exposure to COVID-19 ==